=== PATIENT | female | born 1945 ===

== ENCOUNTER 2018-07-06 17:37 | Inpatient (IN) ==
--- NOTE | 2018-07-06 23:10 | P.HPIM ---
[facility] of Present Illness [facility] Primary [facility] Physician: UNKNOWN Chief Complaint: Abdominal pain History of Present Illness: Ms. Kaye is a 72-year-old female with a history of recent admission for COPD , pancreatitis, hypertension, chronic iron deficiency anemia, chronic diarrhea, history of colorectal cancer status post right hemicolectomy with terminal ileectomy, hypothyroidism, and GI bleed who was transferred from [facility] for treatment of pancreatitis with pseudocyst. The patient was admitted on 07/05/2018 after presenting to the emergency room at [facility] complaining of abdominal pain, nausea, and vomiting. She had been discharged on June 24, 2018 following inpatient treatment for for pancreatitis - duration of hospital stay was 10 days according to the patient. CT of the abdomen and pelvis without IV contrast performed 07/05/2018 showed a retroperitoneal complex fluid collection measuring 13 x 16 x 17 cm favoring a large pancreatic pseudocyst. There was question of disruption/ necrosis of the pancreatic neck possibly bridging pancreatitis with a potential disruption of pancreatic duct. Significant distention of the proximal common bile duct was seen and was thought to be likely related to its encasement by the pseudocyst. Lipase was "greater than 600", AST was 136 and ALT was 88 and alkaline phosphatase was 332. Her symptoms included abdominal pain, nausea, and vomiting starting 07/04/2018. Patient seen in the CDU shortly after her arrival. She reports severe right quadrant abdominal pain that was previously relieved with IV morphine at [place]. She was just given IV morphine here and it has not taken effect yet. She reports nausea and thirst. She reports only one episode of vomiting that occurred while she was in the [place] ER. Denies any fever, chills, chest pain. She reports increased SOB and was discharged on 06/24/18 with continuous home oxygen at 2 liters via NC. She previously did not require home oxygen. Review of Systems All other systems reviewed negative except as stated in HPI PMFSH - History History Provided By: Patient - Medical History Medical History: Medical History (Last Updated 07/07/18 @ 00:38 by MICHELET Kim) COPD (chronic obstructive pulmonary disease) Chronic diarrhea Colorectal cancer History of GI bleed History of hysterectomy Hypertension Hypothyroidism Iron deficiency Pancreatitis Rosacea - Surgical History Surgical History: Surgical History (Last Updated 07/06/18 @ 23:56 by MICHELET Kim) History of hemicolectomy History of lithotripsy History of nephrectomy Hx of cholecystectomy - Family History Family History: Family History (Last Updated 07/06/18 @ 23:57 by MICHELET Kim) Mother Family history of breast cancer Father Paternal family history of emphysema - Social History I have reviewed the patient's Social History: Yes - Tobacco History Smoking Status: Never smoker - Alcohol History How Often Do You Have a Drink Containing Alcohol: 2 to 3 times a week - Substance Use History Substance History: No History of Abuse Medications and Allergies Allergies Allergy/AdvReac Type Severity Reaction Status Date / Time No Known Allergies Allergy Verified 07/06/18 23:28 Home Medications Medication Instructions Recorded Confirmed Type amlodipine 5 mg PO DAILY 07/06/18 07/06/18 History levothyroxine 50 mcg PO DAILY 07/06/18 07/06/18 History losartan 100 mg PO DAILY 07/06/18 07/06/18 History pantoprazole [Protonix] 40 mg PO DAILY 07/06/18 07/06/18 History spironolactone [Aldactone] 25 mg PO DAILY 07/06/18 07/06/18 History terazosin PO HS 07/06/18 History torsemide 20 mg PO DAILY 07/06/18 07/06/18 History Exam Narrative: GENERAL: This is an overweight elderly female patient, c/o abdominal pain on arrival from [facility]). SKIN: Cool and dry. Extensive rosacea on face. HEAD: Atraumatic. Normocephalic. EYES: No scleral icterus. No injection or drainage. ENT: Nose without bleeding, purulent drainage. NECK: Trachea midline. No JVD. CARDIOVASCULAR: Regular rate and rhythm without murmurs, gallops, or rubs. RESPIRATORY: Clear to auscultation. Breath sounds equal bilaterally. No wheezes , rales, or rhonchi. GASTROINTESTINAL: Abdomen soft, RUQ tenderness without rebound, nondistended. No guarding. MUSCULOSKELETAL: Extremities without clubbing, cyanosis, or edema. No calf tenderness. NEUROLOGICAL: Awake and alert. Motor and sensory grossly within normal limits. Normal speech. Patient does not know doses of her home medications. . Caprini VTE Risk Assessment Caprini VTE Risk Assessment: Moderate/High Risk (score >= 2) Caprini Risk Assessment Model: Point Value = 1 Point Value = 2 Point Value = 3 Point Value = 5 Age 41-60 Minor surgery BMI > 25 kg/m2 Swollen legs Varicose veins or History of unexplained or recurrent spontaneous Oral contraceptives or hormone replacement Sepsis (< 1 month) Serious lung disease, including pneumonia (< 1 month) Abnormal pulmonary function Acute myocardial infarction Congestive heart failure (< 1 month) History of inflammatory bowel disease Medical patient at bed rest Age 61-74 Arthroscopic surgery Major open surgery (> 45 min) Laparoscopic surgery (> 45 min) Malignancy Confined to bed (> 72 hours) Immobilizing plaster cast Central venous access Age >= 75 History of VTE Family history of VTE Factor V Leiden Prothrombin [id number] Lupus anticoagulant Anticardiolipin antibodies Elevated serum homocysteine Heparin-induced thrombocytopenia Other congenital or acquired thrombophilia Stroke (< 1 month) Elective arthroplasty Hip, pelvis, or leg fracture Acute spinal cord injury (< 1 month) Prophylaxis Regimen: Total Risk Factor Score Risk Level Prophylaxis Regimen 0-1 Low Early ambulation 2 Moderate Order ONE of the following: *Sequential Compression Device (SCD) *Heparin 5000 units SQ BID 3-4 Higher Order ONE of the following medications: *Heparin 5000 units SQ TID *Enoxaparin/Lovenox 40 mg SQ daily (WT < 150 kg, CrCl > 30 mL/min) *Enoxaparin/Lovenox 30 mg SQ daily (WT < 150 kg, CrCl > 10-29 mL/min) *Enoxaparin/Lovenox 30 mg SQ BID (WT < 150 kg, CrCl > 30 mL/min) AND/OR *Sequential Compression Device (SCD) 5 or more Highest Order ONE of the following medications: *Heparin 5000 units SQ TID (Preferred with Epidurals) *Enoxaparin/Lovenox 40 mg SQ daily (WT < 150 kg, CrCl > 30 mL/min) *Enoxaparin/Lovenox 30 mg SQ daily (WT < 150 kg, CrCl > 10-29 mL/min) *Enoxaparin/Lovenox 30 mg SQ BID (WT < 150 kg, CrCl > 30 mL/min) AND *Sequential Compression Device (SCD) Assessment and Plan - Plan Ms. Kaye is a 72-year-old female with a history of recent admission for COPD , pancreatitis, hypertension, chronic iron deficiency anemia, chronic diarrhea, history of colorectal cancer status post right hemicolectomy with terminal ileectomy, hypothyroidism, and GI bleed who was transferred from [facility] for treatment of pancreatitis with pseudocyst. Pancreatitis with pseudocyst -CT of abdomen and pelvis without IV contrast showed retroperitoneal complex fluid collection measuring 13 x 16 x 17 cm favoring a large pancreatic pseu- -n.p.o. -IV fluids with normal saline at 100 cc/h -Morphine 2 mg IV every 3 hours as needed for pain -Patient without fever or elevated white blood count, no antibiotics were ever initiated -IV Zofran for nausea -consult to gastroenterology - appreciate assistance COPD -continuous oxygen via 2l NC -PRN duonebs Other chronic medical problems: hypertension, hypothyroidism -resume home medications -will need to verify whether patient takes amlodipine and losartan DVT prophylaxis -SCDs Discussed Condition With: Dr. Nowak, patient, and RN .
[2018-07-06] MEDS ORDERED: Acetaminophen 325 MG Tablet PO PRN (23:37)
[2018-07-06] MEDS ORDERED: Bisacodyl 10 MG Supp RECTAL PRN (23:37)
[2018-07-07] MEDS: Morphine Sulfate Inj 2 MG/ML Vial IV.PUSH PRN ×4 (00:49→22:12)
[2018-07-07] MEDS: Sod Chloride 0.9% Inj 1,000 ML IV.CONT SCH ×3 (00:51→20:04)
[2018-07-07] MEDS: Levothyroxine 50 MCG Tablet PO SCH (06:46)
[2018-07-07] MEDS: Famotidine PF Inj 20 MG/2 ML Vial IV.PUSH SCH ×2 (08:33→20:04)
[2018-07-07] MEDS: Torsemide 20 MG Tablet PO SCH (08:34)
[2018-07-07] MEDS: Spironolactone 25 MG Tablet PO SCH (08:36)
[2018-07-07] MEDS ORDERED: amLODIPine 5 MG Tablet PO SCH (09:00)
--- NOTE | 2018-07-07 10:26 | P.PN ---
Subjective Interval history: Follow up for abdominal pain, pancreatic pseudocyst: pt. seen and examined, c/o RUQ pain, no n/v. NPO. No cp, no sob. No fever. No acute changes overnight Physical Exam Vital signs: Vital Signs 07/07/18 00:40 07/07/18 08:38 07/07/18 08:46 Temperature 98.5 F Pulse Rate 81 74 Respiratory Rate 20 20 Blood Pressure 197/88 H 129/61 Pulse Oximetry 98 98 98 Intake & Output 07/06/18 07/07/18 07/07/18 18:59 06:59 18:59 Intake Total 1000 / 1000 Balance 1000 / 1000 Weight 117.934 kg Intake: IV 1000 / 1000 NS Inj 1,000 ML @ 100 mls/hr IV 1000 / 1000 .CONT .Q10H DISHA Rx#:[id number] Other: Weight On Admission 117.934 kg Narrative: GENERAL: overweight elderly female patient, NAD SKIN: Cool and dry. Extensive rosacea on face. HEAD: Atraumatic. Normocephalic. EYES: No scleral icterus. No injection or drainage. ENT: Nose without bleeding, purulent drainage. NECK: Trachea midline. No JVD. CARDIOVASCULAR: Regular rate and rhythm without murmurs, gallops, or rubs. RESPIRATORY: Clear to auscultation. Breath sounds equal bilaterally. No wheezes , rales, or rhonchi. GASTROINTESTINAL: Abdomen soft, RUQ tenderness without rebound, nondistended. No guarding. MUSCULOSKELETAL: Extremities without clubbing, cyanosis, or edema. No calf tenderness. NEUROLOGICAL: Awake and alert. Motor and sensory grossly within normal limits. Normal speech. Assessment and Plan - Assessment (1) Pancreatitis Code(s): K85.90 - Acute pancreatitis without necrosis or infection, unspecified Status: Acute (2) Pseudocyst of pancreas Code(s): K86.3 - Pseudocyst of pancreas Status: Acute - Plan 72-year-old female with a history of recent admission for COPD, pancreatitis, hypertension, chronic iron deficiency anemia, chronic diarrhea, history of colorectal cancer status post right hemicolectomy with terminal ileectomy, hypothyroidism, and GI bleed who was transferred from [facility] for treatment of pancreatitis with pseudocyst. Pancreatitis with pseudocyst -CT of abdomen and pelvis without IV contrast showed retroperitoneal complex fluid collection measuring 13 x 16 x 17 cm favoring a large pancreatic pseu- cyst. -n.p.o. -IV fluids with normal saline at 100 cc/h -Morphine 2 mg IV every 3 hours as needed for pain -Patient without fever or elevated white blood count, no antibiotics were ever initiated -IV Zofran for nausea -appreciate GI input, d/w FAMILY PSYCHOLOGIST, going for EUS today COPD -continuous oxygen via 2l NC -PRN duonebs Hypertension -continue home meds when verified, Norvasc and Losartan. Hypothyroidism -continue home meds DVT prophylaxis-SCDs Labs in am Code Status: Full code Discussed Condition With: RN, pt, CM Discharge Planning: Not ready yet, poss home with [facility] [place]
--- NOTE | 2018-07-07 10:30 | P.CONGI ---
History of Present Illness Consult date: 07/07/18 Consult reason: Endoscopic ultrasound for pancreatitis with pseudocyst Chief complaint: Pancreatitis History of Present Illness: This patient is a 72-year-old female with a medical history significant for COPD, pancreatitis, hypertension, iron deficiency anemia, chronic diarrhea, colorectal cancer(right hemicolectomy with terminal ileectomy in 1993), hypothyroidism and GI bleeding. Surgical history includes hysterectomy and right nephrectomy in 1989. This patient was transferred from [facility] to [facility] for endoscopic ultrasound due to diagnosis of pancreatitis with pseudocyst. 07/05/2018 patient presented to the emergency room at [facility] with complaint of abdominal pain nausea and vomiting. Patient had similar symptoms and was admitted recently in May 2018 for pancreatitis as well. CT abdomen and pelvis revealed a retroperitoneal complex fluid collection measuring 13 x 16 x 17 cm-large pancreatic pseudocyst. Upon consultation, patient states that her symptoms began 3 days ago. Symptoms including lower abdominal pain that she describes as spasms. Patient states pain radiates over entire abdomen and is intermittent. At this time patient rates pain at 1/10 after administration of morphine. Patient reports nausea with one episode of emesis. She states this is the second bout of pancreatitis that she has experienced in the last 30 days. Patient denies tobacco use but does endorse drinking 3-4 glasses of "Wrightspeed whiskey" every week for the last 40 years. Patient denies ever having had an EGD in the past but does endorse having colonoscopy in the spring 2017, where to her recollection there were no abnormal findings. Patient states she has 2-3 bowel movements daily that are soft and brown without any noted blood or mucus. States she experiences occasional heartburn for which she will take [id number] medication if needed but tries to avoid anything that she feels triggers symptoms. States family history of pancreatitis-paternal aunt. Our service has been consulted to evaluate patient via endoscopic ultrasound for diagnosed pancreatitis with pseudocyst. <Jennifer Pepper - Last Filed: 07/07/18 10:32> Review of Systems All other systems reviewed negative except as stated in HPI <Jennifer Pepper - Last Filed: 07/07/18 10:32> PMFSH - History History Provided By: Patient - Medical History Medical History: Medical History (Last Updated 07/07/18 @ 00:38 by MICHELET Kim) COPD (chronic obstructive pulmonary disease) Chronic diarrhea Colorectal cancer History of GI bleed History of hysterectomy Hypertension Hypothyroidism Iron deficiency Pancreatitis Rosacea - Surgical History Surgical History: Surgical History (Last Updated 07/06/18 @ 23:56 by MICHELET Kim) History of hemicolectomy History of lithotripsy History of nephrectomy Hx of cholecystectomy - Family History Family History: Family History (Last Updated 07/06/18 @ 23:57 by MICHELET Kim) Mother Family history of breast cancer Father Paternal family history of emphysema - Tobacco History Second Hand Smoke Exposure: Yes (Family) Smoking Status: Never smoker - Alcohol History How Often Do You Have a Drink Containing Alcohol: 2 to 3 times a week - Substance Use History Substance History: No History of Abuse - Travel History Recent Travel in the [place] Within the Last 8 Weeks: No Recent Travel Out of the Country Within the Last 8 Weeks: No <Jennifer Pepper - Last Filed: 07/07/18 10:32> - Medical History Medical History: Medical History (Last Updated 07/07/18 @ 00:38 by MICHELET Kim) COPD (chronic obstructive pulmonary disease) Chronic diarrhea Colorectal cancer History of GI bleed History of hysterectomy Hypertension Hypothyroidism Iron deficiency Pancreatitis Rosacea - Surgical History Surgical History: Surgical History (Last Updated 07/06/18 @ 23:56 by MICHELET Kim) History of hemicolectomy History of lithotripsy History of nephrectomy Hx of cholecystectomy - Family History Family History: Family History (Last Updated 07/06/18 @ 23:57 by MICHELET Kim) Mother Family history of breast cancer Father Paternal family history of emphysema <Shadi Gaffney - Last Filed: 07/07/18 10:54> Medications and Allergies Active Medications: Active Medications Acetaminophen (Tylenol) 650 mg PO Q4H PRN PRN Reason: Temp > 100.4 Albuterol (Duoneb Neb (Prn)) 1 ampul NEB Q2HR NEB PRN PRN Reason: SHORTNESS OF BREATH/WHEEZING Amlodipine Besylate (Norvasc) 5 mg PO DAILY DISHA Bisacodyl (Dulcolax Supp) 10 mg RECTAL DAILY PRN PRN Reason: SEVERE CONSITIPATION Famotidine (Pepcid Pf Inj) 20 mg IV.PUSH Q12HR DISHA Last Admin: 07/07/18 08:33 Dose: 20 mg Sodium Chloride (Ns Inj) 1,000 mls @ 100 mls/hr IV.CONT .Q10H [facility] Last Admin: 07/07/18 08:47 Dose: 100 mls/hr Lactulose (Lactulose Liq) 30 ml PO DAILY PRN PRN Reason: SEVERE CONSITIPATION Levothyroxine Sodium (Synthroid) 50 mcg PO DAILY@0600 [facility] Last Admin: 07/07/18 06:46 Dose: 50 mcg Losartan Potassium (Cozaar) 100 mg PO DAILY [facility] Morphine Sulfate (Morphine Inj) 2 mg IV.PUSH Q3H PRN PRN Reason: pain > 4 Last Admin: 07/07/18 08:31 Dose: 2 mg Ondansetron HCl (Zofran Inj) 4 mg IV.PUSH Q6H PRN PRN Reason: NAUSEA OR VOMITING Last Admin: 07/07/18 07:56 Dose: 4 mg Pantoprazole Sodium (Protonix) 40 mg PO DAILY [facility] Last Admin: 07/07/18 08:34 Dose: 40 mg Sennosides (Senokot) 17.2 mg PO Q12H PRN PRN Reason: Moderate Constipation Spironolactone (Aldactone) 25 mg PO DAILY [facility] Last Admin: 07/07/18 08:36 Dose: 25 mg Torsemide (Demadex) 20 mg PO DAILY [facility] Last Admin: 07/07/18 08:34 Dose: 20 mg <Jennifer Pepper - Last Filed: 07/07/18 10:32> Active Medications: Active Medications Acetaminophen (Tylenol) 650 mg PO Q4H PRN PRN Reason: Temp > 100.4 Albuterol (Duoneb Neb (Prn)) 1 ampul NEB Q2HR NEB PRN PRN Reason: SHORTNESS OF BREATH/WHEEZING Amlodipine Besylate (Norvasc) 5 mg PO DAILY [facility] Bisacodyl (Dulcolax Supp) 10 mg RECTAL DAILY PRN PRN Reason: SEVERE CONSITIPATION Famotidine (Pepcid Pf Inj) 20 mg IV.PUSH Q12HR [facility] Last Admin: 07/07/18 08:33 Dose: 20 mg Sodium Chloride (Ns Inj) 1,000 mls @ 100 mls/hr IV.CONT .Q10H [facility] Last Admin: 07/07/18 08:47 Dose: 100 mls/hr Lactulose (Lactulose Liq) 30 ml PO DAILY PRN PRN Reason: SEVERE CONSITIPATION Levothyroxine Sodium (Synthroid) 50 mcg PO DAILY@0600 [facility] Last Admin: 07/07/18 06:46 Dose: 50 mcg Losartan Potassium (Cozaar) 100 mg PO DAILY [facility] Morphine Sulfate (Morphine Inj) 2 mg IV.PUSH Q3H PRN PRN Reason: pain > 4 Last Admin: 07/07/18 08:31 Dose: 2 mg Ondansetron HCl (Zofran Inj) 4 mg IV.PUSH Q6H PRN PRN Reason: NAUSEA OR VOMITING Last Admin: 07/07/18 07:56 Dose: 4 mg Pantoprazole Sodium (Protonix) 40 mg PO DAILY [facility] Last Admin: 07/07/18 08:34 Dose: 40 mg Sennosides (Senokot) 17.2 mg PO Q12H PRN PRN Reason: Moderate Constipation Spironolactone (Aldactone) 25 mg PO DAILY [facility] Last Admin: 07/07/18 08:36 Dose: 25 mg Torsemide (Demadex) 20 mg PO DAILY [facility] Last Admin: 07/07/18 08:34 Dose: 20 mg <Shadi Gaffney E - Last Filed: 07/07/18 10:54> Allergies Allergy/AdvReac Type Severity Reaction Status Date / Time No Known Allergies Allergy Verified 07/06/18 23:28 Home Medications Medication Instructions Recorded Confirmed Type amlodipine 5 mg PO DAILY 07/06/18 07/06/18 History levothyroxine 50 mcg PO DAILY 07/06/18 07/06/18 History losartan 100 mg PO DAILY 07/06/18 07/06/18 History pantoprazole [Protonix] 40 mg PO DAILY 07/06/18 07/06/18 History spironolactone [Aldactone] 25 mg PO DAILY 07/06/18 07/06/18 History terazosin PO HS 07/06/18 History torsemide 20 mg PO DAILY 07/06/18 07/06/18 History Exam Vital signs: Vital Signs 07/07/18 00:40 07/07/18 08:38 07/07/18 08:46 Temperature 98.5 F Pulse Rate 81 74 Respiratory Rate 20 20 Blood Pressure 197/88 H 129/61 Pulse Oximetry 98 98 98 Intake & Output 07/06/18 07/07/18 07/07/18 18:59 06:59 18:59 Intake Total 1000 / 1000 Balance 1000 / 1000 Weight 117.934 kg Intake: IV 1000 / 1000 NS Inj 1,000 ML @ 100 mls/hr IV 1000 / 1000 .CONT .Q10H [facility] Rx#:[id number] Other: Weight On Admission 117.934 kg - Constitutional no acute distress - Routine HEENT Exam Head: Present: normocephalic - Routine Respiratory Exam Present: CTA bilaterally. Absent: accessory muscle use - Routine Abdominal Exam Present: soft, normoactive bowel sounds, tenderness. Absent: distended, guarding, firm - Routine Extremities Exam Absent: edema - Routine Skin Exam Present: dry, warm - Routine Neurological Exam Present: alert, oriented X3 <Jennifer Pepper - Last Filed: 07/07/18 10:32> Vital signs: Vital Signs 07/07/18 00:40 07/07/18 08:38 07/07/18 08:46 Temperature 98.5 F Pulse Rate 81 74 Respiratory Rate 20 20 Blood Pressure 197/88 H 129/61 Pulse Oximetry 98 98 98 Intake & Output 07/06/18 07/07/18 07/07/18 18:59 06:59 18:59 Intake Total 1000 / 1000 Balance 1000 / 1000 Weight 117.934 kg Intake: IV 1000 / 1000 NS Inj 1,000 ML @ 100 mls/hr IV 1000 / 1000 .CONT .Q10H [facility] Rx#:[id number] Other: Weight On Admission 117.934 kg <Shadi Gaffney - Last Filed: 07/07/18 10:54> Assessment and Plan (1) Pancreatitis Status: Acute Code(s): K85.90 - Acute pancreatitis without necrosis or infection, unspecified (2) Pseudocyst of pancreas Status: Acute Code(s): K86.3 - Pseudocyst of pancreas - Plan This patient is a 72-year-old female with a medical history significant for COPD , pancreatitis, hypertension, iron deficiency anemia, chronic diarrhea, colorectal cancer(right hemicolectomy with terminal ileectomy in 1993), hypothyroidism and GI bleeding. Surgical history includes hysterectomy and right nephrectomy in 1989. This patient was transferred from [facility] to [facility] for endoscopic ultrasound due to diagnosis of pancreatitis with pseudocyst. 07/05/2018 patient presented to the emergency room at [facility] with complaint of abdominal pain nausea and vomiting. Patient had similar symptoms and was admitted recently in May 2018 for pancreatitis as well. CT abdomen and pelvis revealed a retroperitoneal complex fluid collection measuring 13 x 16 x 17 cm-large pancreatic pseudocyst. Upon consultation, patient states that her symptoms began 3 days ago. Symptoms including lower abdominal pain that she describes as spasms. Patient states pain radiates over entire abdomen and is intermittent. At this time patient rates pain at 1/10 after administration of morphine. Patient reports nausea with one episode of emesis. She states this is the second bout of pancreatitis that she has experienced in the last 30 days. Patient denies tobacco use but does endorse drinking 3-4 glasses of "Wrightspeed whiskey" every week for the last 40 years. Patient denies ever having had an EGD in the past but does endorse having colonoscopy in the spring 2017, where to her recollection there were no abnormal findings. Patient states she has 2-3 bowel movements daily that are soft and brown without any noted blood or mucus. States she experiences occasional heartburn for which she will take vvoa-[id number]-pvaaujv medication if needed but tries to avoid anything that she feels triggers symptoms. States family history of pancreatitis-paternal aunt. Our service has been consulted to evaluate patient via endoscopic ultrasound for diagnosed pancreatitis with pseudocyst. Pancreatitis with pseudocyst 07/05/2018 CT abdomen and pelvis revealed retroperitoneal complex fluid collection above. Question of disruption/necrosis of the pancreatic neck possibly bridging pancreatitis with a potential disruption of the pancreatic duct. Plan -N.p.o.- GI rest -Consent for EUS -EUS planned for today to evaluate pancreatic pseudocyst-Dr. Gaffney -Analgesics and antiemetics as per attending -IV hydration -Supportive care -Further recommendations to follow This patient has been seen by myself and Dr. Gaffney and this note is written on his behalf - Attending Attestation Dr. Gaffney <Jennifer Pepper - Last Filed: 07/07/18 10:32> (1) Pancreatitis Status: Acute Code(s): K85.90 - Acute pancreatitis without necrosis or infection, unspecified (2) Pseudocyst of pancreas Status: Acute Code(s): K86.3 - Pseudocyst of pancreas - Plan Patient was seen and examined Agree with above Continue with current supportive care Monitor labs Plan EUS with pseudocyst drainage <Shadi Gaffney - Last Filed: 07/07/18 10:54>
[2018-07-07] MEDS ORDERED: Succinylcholine Inj 100 MG/5 ML Syringe IV.PUSH ONE (11:33)
[2018-07-07] MEDS ORDERED: Lidocaine PF 1% Inj 5 ML Syringe OTHER ONE (11:33)
--- NOTE | 2018-07-07 12:18 | P.PCN ---
Date of procedure: 07/07/18 Pre-op diagnosis: Pancreatic pseudocyst Procedure: PROCEDURE PERFORMED EUS PROCEDURE: The procedure, risks and benefits were discussed with Patient/POA and informed consent was obtained. Anesthesia sedated Patient with Diprivan. Patient was placed in the left lateral decubitus position. Endoscopic ultrasound: The Pentax videoscope was introduced through the oropharynx and advanced to the second portion of the duodenum. FINDINGS: The endoscopic view of the stomach did not reveal any protrusions or bulging into the stomach Pancreatic body and tail appear to be intact Pancreatic head appeared to be disrupted and ill-defined The pancreatic pseudocyst was noted to be deep from within the small bowel and I am unable to drain this into the gastrointestinal tract ESTIMATED BLOOD LOSS: None SPECIMENS REMOVED: None COMPLICATIONS: None IMPRESSION: Pancreatitis Pancreatic pseudocyst PLAN: Will have IR drain the pseudocyst Anesthesia: NANI Surgeon: Shadi Gaffney Condition: stable Disposition: floor
[2018-07-07] MEDS ORDERED: *morphine SULFATE 4 MG/ML PERIprocedure ONLY ONE (12:22)
[2018-07-07] MEDS ORDERED: *Ondansetron Inj 4 MG/2 ML Vial PERIprocedural Use ONLY ONE (12:31)
[2018-07-07 23:57] LABS: Baso % (Auto) 0.4 % (0.0-2.0); Hematocrit 28.9 % (35.0-46.0); Lymph # (Auto) 0.4 th/mm3 (1.0-4.8); Mean Corpuscular HGB Conc 31.3 % (32.0-36.0); Mean Corpuscular Hemoglobin 26.8 pg (27.0-34.0); Mean Corpuscular Volume 85.8 fL (80.0-100.0); Mean Platelet Volume 7.5 fL (7.0-11.0); Mono # (Auto) 0.5 th/mm3 (0.0-0.9); Mono % (Auto) 6.9 % (0.0-8.0); Neut # (Auto) 5.7 th/mm3 (1.8-7.7); Neut % (Auto) 86.7 % (16.0-70.0); Platelet Count 309 th/mm3 (150-450); Red Blood Count 3.37 mil/mm3 (4.00-5.30); Red Cell Distribution Width 14.9 % (11.6-17.2); White Blood Count 6.6 th/mm3 (4.0-11.0)
[2018-07-08 00:26] LABS: Alanine Aminotransferase 407 U/L (10-53); Albumin 2.3 g/dL (3.4-5.0); Anion Gap 6 meq/L (5-15); Aspartate Aminotransferase 492 U/L (15-37); Blood Urea Nitrogen 21 mg/dL (7-18); Calcium 8.6 mg/dL (8.5-10.1); Chloride 99 meq/L (98-107); Glucose,Random 143 mg/dL (74-106); Potassium 3.7 meq/L (3.5-5.1); Sodium 140 meq/L (136-145)
[2018-07-08 00:28] LABS: Alkaline Phosphatase 660 U/L (45-117); Lipase 1974 U/L (73-393); Total Protein 6.2 g/dL (6.4-8.2)
[2018-07-08] MEDS: Morphine Sulfate Inj 2 MG/ML Vial IV.PUSH PRN ×4 (04:28→21:55)
[2018-07-08 06:04] LABS: Hematocrit 30.4 % (35.0-46.0); Mean Corpuscular HGB Conc 33.1 % (32.0-36.0); Mean Corpuscular Hemoglobin 28.3 pg (27.0-34.0); Mean Corpuscular Volume 85.4 fL (80.0-100.0); Mean Platelet Volume 7.5 fL (7.0-11.0); Platelet Count 334 th/mm3 (150-450); Red Blood Count 3.55 mil/mm3 (4.00-5.30); Red Cell Distribution Width 14.8 % (11.6-17.2); White Blood Count 7.1 th/mm3 (4.0-11.0)
[2018-07-08 06:20] LABS: INR 1.1 Ratio; Prothrombin Time 11.4 sec (9.8-11.6)
[2018-07-08 06:24] LABS: Albumin 2.6 g/dL (3.4-5.0); Anion Gap 7 meq/L (5-15); Aspartate Aminotransferase 625 U/L (15-37); Blood Urea Nitrogen 21 mg/dL (7-18); Carbon Dioxide 36.8 meq/L (21.0-32.0); Chloride 98 meq/L (98-107); Glucose,Random 100 mg/dL (74-106); Potassium 3.8 meq/L (3.5-5.1); Sodium 142 meq/L (136-145)
[2018-07-08 06:30] LABS: Alanine Aminotransferase 498 U/L (10-53); Alkaline Phosphatase 761 U/L (45-117); Lipase 1952 U/L (73-393); Total Protein 6.9 g/dL (6.4-8.2)
[2018-07-08] MEDS: Sod Chloride 0.9% Inj 1,000 ML IV.CONT SCH ×2 (06:30→16:42)
[2018-07-08] MEDS: Levothyroxine 50 MCG Tablet PO SCH (06:31)
[2018-07-08] MEDS: Spironolactone 25 MG Tablet PO SCH (08:33)
[2018-07-08] MEDS: Famotidine PF Inj 20 MG/2 ML Vial IV.PUSH SCH ×2 (08:33→20:00)
[2018-07-08] MEDS: Torsemide 20 MG Tablet PO SCH (08:33)
--- NOTE | 2018-07-08 10:52 | P.PN ---
Subjective Interval history: With pain in her abdomen, no nausea or vomiting. Did not pass gas however feels distended. Did not have a bowel movement. No fever or chills overnight. No nausea or vomiting Physical Exam Vital signs: Vital Signs 07/07/18 12:17 07/07/18 12:30 07/07/18 16:21 Temperature 99 F 98.9 F Pulse Rate 74 74 60 Respiratory Rate 22 24 18 Blood Pressure 162/73 H 141/74 H 145/73 H Pulse Oximetry 100 99 99 07/07/18 18:12 07/07/18 20:00 07/07/18 20:08 Temperature 98.1 F 98.0 F Pulse Rate 62 80 85 Respiratory Rate 16 20 Blood Pressure 149/75 H 131/74 Pulse Oximetry 93 L 96 07/08/18 00:00 07/08/18 04:00 07/08/18 08:00 Temperature 97.5 F L 97.5 F L 97.9 F Pulse Rate 68 71 65 Respiratory Rate 18 18 18 Blood Pressure 160/79 H 163/78 H 159/72 H Pulse Oximetry 95 99 99 Intake & Output 07/07/18 07/08/18 07/08/18 18:59 06:59 18:59 Intake Total 1200 / 1200 1999 Balance 1200 / 1200 1999 Weight 117.8 kg Intake: IV 1000 / 1000 1999 NS Inj 1,000 ML @ 100 mls/hr IV 1000 / 1000 1999 .CONT .Q10H [facility] Rx#:[id number] Anesthesia Amount 200 / 200 Other: # Voids 3 Narrative: GENERAL: Pleasant 72 yo F, obese, in NAD SKIN: Cool and dry. Extensive rosacea on face. HEAD: Atraumatic. Normocephalic. EYES: No scleral icterus. No injection or drainage. ENT: Nose without bleeding, purulent drainage. NECK: Trachea midline. No JVD. CARDIOVASCULAR: Regular rate and rhythm without murmurs, gallops, or rubs. RESPIRATORY: Clear to auscultation. Breath sounds equal bilaterally. No wheezes , rales, or rhonchi. GASTROINTESTINAL: Abdomen soft, obese, RUQ tenderness without rebound, nondistended. No guarding. MUSCULOSKELETAL: Extremities without clubbing, cyanosis, or edema. No calf tenderness. NEUROLOGICAL: Awake and alert. Motor and sensory grossly within normal limits. Normal speech. Results - Labs CBC & Chem 7: 07/08/18 05:33 07/08/18 05:33 Laboratory Results - last 24 hr 07/07/18 07/07/18 07/08/18 23:35 23:35 05:33 WBC 6.6 7.1 RBC 3.37 L 3.55 L Hgb 9.0 L 10.0 L Hct 28.9 L 30.4 L MCV 85.8 85.4 MCH 26.8 L 28.3 MCHC 31.3 L 33.1 RDW 14.9 14.8 Plt Count 309 334 MPV 7.5 7.5 Neut % (Auto) 86.7 H Lymph % (Auto) 6.0 L [place] % (Auto) 6.9 Eos % (Auto) 0.0 Baso % (Auto) 0.4 Neut # (Auto) 5.7 Lymph # (Auto) 0.4 L [place] # (Auto) 0.5 Eos # (Auto) 0.0 Baso # (Auto) 0.0 WBC Differential . Differential Comment Auto diff final PT INR Sodium 140 Potassium 3.7 Chloride 99 Carbon Dioxide 35.0 H Anion Gap 6 BUN 21 H Creatinine 1.53 H Random Glucose 143 H Calcium 8.6 Total Bilirubin 2.2 H AST 492 H ALT 407 H Alkaline Phosphatase 660 H Total Protein 6.2 L Albumin 2.3 L Lipase 1974 H 07/08/18 07/08/18 05:33 05:33 WBC RBC Hgb Hct MCV MCH MCHC RDW Plt Count MPV Neut % (Auto) Lymph % (Auto) [place] % (Auto) Eos % (Auto) Baso % (Auto) Neut # (Auto) Lymph # (Auto) [place] # (Auto) Eos # (Auto) Baso # (Auto) WBC Differential Differential Comment PT 11.4 INR 1.1 Sodium 142 Potassium 3.8 Chloride 98 Carbon Dioxide 36.8 H Anion Gap 7 BUN 21 H Creatinine 1.71 H Random Glucose 100 Calcium 9.0 Total Bilirubin 2.4 H AST 625 H ALT 498 H Alkaline Phosphatase 761 H Total Protein 6.9 D Albumin 2.6 L Lipase 1952 H Assessment and Plan - Assessment (1) Pancreatitis Code(s): K85.90 - Acute pancreatitis without necrosis or infection, unspecified Status: Acute (2) Pseudocyst of pancreas Code(s): K86.3 - Pseudocyst of pancreas Status: Acute - Plan 72-year-old female with a history of recent admission for COPD, pancreatitis, hypertension, chronic iron deficiency anemia, chronic diarrhea, history of colorectal cancer status post right hemicolectomy with terminal ileectomy, hypothyroidism, and GI bleed who was transferred from [facility] for treatment of pancreatitis with pseudocyst. Pancreatitis with pseudocyst -CT of abdomen and pelvis without IV contrast showed retroperitoneal complex fluid collection measuring 13 x 16 x 17 cm favoring a large pancreatic pseu- cyst. -n.p.o. -IV fluids with normal saline at 100 cc/h -Morphine 2 mg IV every 3 hours as needed for pain -Patient without fever or elevated white blood count, no antibiotics were ever initiated -IV Zofran for nausea -appreciate GI input, d/w [employer], going for EUS today -s/p EUS by GI. Consult IR to drain the pseudocyst. Plan for IR to drain pseudocyst, however IR and general surgery to not perform surgery. Plan to transfer to [facility]. Discussed with the case management. Possible transfer to [facility] COPD -continuous oxygen via 2l [place] -PRN duonebs Hypertension -continue home meds when verified, Norvasc and Losartan. Hypothyroidism -continue home meds DVT prophylaxis-SCDs Labs in am Code Status: Full code Discussed Condition With: patient, nurse Discharge Planning: Not ready yet, poss home with [facility] Plan for IR to drain pseudocyst, however IR and general surgery to not perform surgery. Plan to transfer to tertiary hospital. Discussed with the case management. Possible transfer to [facility]
--- NOTE | 2018-07-08 12:48 | ECG ---
Date Performed: 07/07/2018 Time Performed: 11:13:13 PTAGE: 72 years EKG: Sinus rhythm WITH OCCASIONAL VENTRICULAR PREMATURE COMPLEXES WITH OCCASIONAL SUPRAVENTRICULAR PREMATURE COMPLEXES BORDERLINE ECG INTERPRETATION BASED ON A DEFAULT AGE OF 42 YEARS NO PREVIOUS TRACING DOCTOR: Cristo Crum Interpretating Date/Time 07/08/2018 12:44:29
--- NOTE | 2018-07-08 13:17 | IR ---
EXAM DATE: 07/08/2018 9:10 AM EST AGE/SEX: 72 years / Female INDICATIONS: Patient with a history of pancreatic pseudocyst. COMPARISON: Recent outside CT abdomen study from [facility]. IMAGING STUDIES: The CT abdomen study reveals a large complex pancreatic pseudocyst extending from the liver hilum hien n into the right paramedian upper pelvic retroperitoneum. The collection is multilocular and surround s the common bile duct and duodenum. There is no safe window for access of the collection through the stomach percutaneously. ASSESSMENT: Complex pancreatic pseudocyst not appropriate for percutaneous drainage PLAN: I would recommend that the patient be referred to a tertiary care facility with expertise in complex pancreatic disease management Electronically signed by: Ralph Acosta MD 07/08/2018 1:15 PM EST
--- NOTE | 2018-07-08 13:33 | P.PNGI ---
Subjective Interval history: Right upper quadrant abdominal pain decreased appetite <Tamar Garsia - Last Filed: 07/08/18 15:11> Physical Exam Vital signs: Vital Signs 07/07/18 16:21 07/07/18 18:12 07/07/18 20:00 Temperature 98.9 F 98.1 F Pulse Rate 60 62 80 Respiratory Rate 18 16 Blood Pressure 145/73 H 149/75 H Pulse Oximetry 99 93 L 07/07/18 20:08 07/08/18 00:00 07/08/18 04:00 Temperature 98.0 F 97.5 F L 97.5 F L Pulse Rate 85 68 71 Respiratory Rate 20 18 18 Blood Pressure 131/74 160/79 H 163/78 H Pulse Oximetry 96 95 99 07/08/18 08:00 07/08/18 12:00 Temperature 97.9 F 98.2 F Pulse Rate 65 62 Respiratory Rate 18 18 Blood Pressure 159/72 H 153/77 H Pulse Oximetry 99 99 Intake & Output 07/07/18 07/08/18 07/08/18 18:59 06:59 18:59 Intake Total 1200 / 1200 1999 Balance 1200 / 1200 1999 Weight 117.8 kg Intake: IV 1000 / 1000 1999 NS Inj 1,000 ML @ 100 mls/hr IV 1000 / 1000 1999 .CONT .Q10H [facility] Rx#:[id number] Anesthesia Amount 200 / 200 Other: # Voids 3 - Constitutional moderate distress, obese, disheveled, cooperative - Routine HEENT Exam ENT: Present: mucous membranes moist - Routine Respiratory Exam Present: distant breath sounds (But no obvious rhonchi or wheezing) - Routine Abdominal Exam Present: normoactive bowel sounds (Soft bowel sounds talked abdomen right upper quadrant greater than left) - Routine Skin Exam Present: pallor <AdyTamar Petty - Last Filed: 07/08/18 15:11> Vital signs: Vital Signs 07/08/18 00:00 07/08/18 04:00 07/08/18 08:00 Temperature 97.5 F L 97.5 F L 97.9 F Pulse Rate 68 71 65 Respiratory Rate 18 18 18 Blood Pressure 160/79 H 163/78 H 159/72 H Pulse Oximetry 95 99 99 07/08/18 12:00 07/08/18 16:00 07/08/18 18:34 Temperature 98.2 F 97.1 F L Pulse Rate 62 63 61 Respiratory Rate 18 18 Blood Pressure 153/77 H 161/77 H Pulse Oximetry 99 100 Intake & Output 07/08/18 07/08/18 07/09/18 06:59 18:59 06:59 Intake Total 1999 1000 / 1000 Balance 1999 1000 / 1000 Weight 117.8 kg Intake: IV 1999 1000 / 1000 NS Inj 1,000 ML @ 100 mls/hr IV 1999 1000 / 1000 .CONT .Q10H [facility] Rx#:[id number] Other: # Voids 3 <Agustin Roach - Last Filed: 07/08/18 20:35> Results - Labs CBC & Chem 7: 07/08/18 05:33 07/08/18 05:33 Laboratory Results - last 24 hr 07/07/18 07/07/18 07/08/18 23:35 23:35 05:33 WBC 6.6 7.1 RBC 3.37 L 3.55 L Hgb 9.0 L 10.0 L Hct 28.9 L 30.4 L MCV 85.8 85.4 MCH 26.8 L 28.3 MCHC 31.3 L 33.1 RDW 14.9 14.8 Plt Count 309 334 MPV 7.5 7.5 Neut % (Auto) 86.7 H Lymph % (Auto) 6.0 L [place] % (Auto) 6.9 Eos % (Auto) 0.0 Baso % (Auto) 0.4 Neut # (Auto) 5.7 Lymph # (Auto) 0.4 L [place]ard # (Auto) 0.5 Eos # (Auto) 0.0 Baso # (Auto) 0.0 WBC Differential . Differential Comment Auto diff final PT INR Sodium 140 Potassium 3.7 Chloride 99 Carbon Dioxide 35.0 H Anion Gap 6 BUN 21 H Creatinine 1.53 H Random Glucose 143 H Calcium 8.6 Total Bilirubin 2.2 H AST 492 H ALT 407 H Alkaline Phosphatase 660 H Total Protein 6.2 L Albumin 2.3 L Lipase 1974 H 07/08/18 07/08/18 05:33 05:33 WBC RBC Hgb Hct MCV MCH MCHC RDW Plt Count MPV Neut % (Auto) Lymph % (Auto) [place] % (Auto) Eos % (Auto) Baso % (Auto) Neut # (Auto) Lymph # (Auto) [place] # (Auto) Eos # (Auto) Baso # (Auto) WBC Differential Differential Comment PT 11.4 INR 1.1 Sodium 142 Potassium 3.8 Chloride 98 Carbon Dioxide 36.8 H Anion Gap 7 BUN 21 H Creatinine 1.71 H Random Glucose 100 Calcium 9.0 Total Bilirubin 2.4 H AST 625 H ALT 498 H Alkaline Phosphatase 761 H Total Protein 6.9 D Albumin 2.6 L Lipase 1952 H <AdyTamar Malinda - Last Filed: 07/08/18 15:11> - Labs CBC & Chem 7: 07/08/18 05:33 07/08/18 05:33 Laboratory Results - last 24 hr 07/07/18 07/07/18 07/08/18 23:35 23:35 05:33 WBC 6.6 7.1 RBC 3.37 L 3.55 L Hgb 9.0 L 10.0 L Hct 28.9 L 30.4 L MCV 85.8 85.4 MCH 26.8 L 28.3 MCHC 31.3 L 33.1 RDW 14.9 14.8 Plt Count 309 334 MPV 7.5 7.5 Neut % (Auto) 86.7 H Lymph % (Auto) 6.0 L [place] % (Auto) 6.9 Eos % (Auto) 0.0 Baso % (Auto) 0.4 Neut # (Auto) 5.7 Lymph # (Auto) 0.4 L [place] # (Auto) 0.5 Eos # (Auto) 0.0 Baso # (Auto) 0.0 WBC Differential . Differential Comment Auto diff final PT INR Sodium 140 Potassium 3.7 Chloride 99 Carbon Dioxide 35.0 H Anion Gap 6 BUN 21 H Creatinine 1.53 H Random Glucose 143 H Calcium 8.6 Total Bilirubin 2.2 H AST 492 H ALT 407 H Alkaline Phosphatase 660 H Total Protein 6.2 L Albumin 2.3 L Lipase 1974 H 07/08/18 07/08/18 05:33 05:33 WBC RBC Hgb Hct MCV MCH MCHC RDW Plt Count MPV Neut % (Auto) Lymph % (Auto) [place] % (Auto) Eos % (Auto) Baso % (Auto) Neut # (Auto) Lymph # (Auto) [place] # (Auto) Eos # (Auto) Baso # (Auto) WBC Differential Differential Comment PT 11.4 INR 1.1 Sodium 142 Potassium 3.8 Chloride 98 Carbon Dioxide 36.8 H Anion Gap 7 BUN 21 H Creatinine 1.71 H Random Glucose 100 Calcium 9.0 Total Bilirubin 2.4 H AST 625 H ALT 498 H Alkaline Phosphatase 761 H Total Protein 6.9 D Albumin 2.6 L Lipase 1952 H <Agustin Roach - Last Filed: 07/08/18 20:35> Assessment and Plan (1) Pancreatitis Status: Acute Code(s): K85.90 - Acute pancreatitis without necrosis or infection, unspecified (2) Pseudocyst of pancreas Status: Acute Code(s): K86.3 - Pseudocyst of pancreas - Plan EUS per Dr. Gaffney The endoscopic view of the stomach did not reveal any protrusions or bulging into the stomach Pancreatic body and tail appear to be intact Pancreatic head appeared to be disrupted and ill-defined The pancreatic pseudocyst was noted to be deep from within the small bowel and I am unable to drain this into the gastrointestinal tract Pancreatitis and pancreatic pseudocyst 07/08/2018 IR consulted to evaluate pseudocyst for patient with diagnosis of pancreatitis. Currently are is evaluate and further needs and recommended surgical consult. Labs reviewed this a.m. which noted increased bilirubin 2.4 increase in LFTs 625 AST, 498 ALT increased alkaline phosphatase 761 and hemoglobin 10. Consulting general surgery and GI will sign off for now. Supportive care to patient and family Patient continues with right upper quadrant distention and pain greater than left upper quadrant. Appears weakened but answering simple questions family in the room for support. No current nausea or vomiting but decreased to no appetite. Addendum, general surgery consult is unable to provide service for patient's pseudocyst. Patient will need transfer to [facility] or [place] for further evaluation and workup. Patient seen per myself and Dr. Roach, note was written on his behalf <Tamar Garsia - Last Filed: 07/08/18 15:11> (1) Pancreatitis Status: Acute Code(s): K85.90 - Acute pancreatitis without necrosis or infection, unspecified (2) Pseudocyst of pancreas Status: Acute Code(s): K86.3 - Pseudocyst of pancreas - Plan Agree with above note, patient will need to be transferred to a tertiary center such as [facility] or [facility] for surgical evaluation for possible drainage of the cyst since radiology and EUS were not a valid option, we will follow-up as needed <Agustin Roach - Last Filed: 07/08/18 20:35>
--- NOTE | 2018-07-08 14:39 | P.CONGS ---
[facility] Gen Surgery Consult Note Consult date: 07/08/18 Narrative: 72 yo F with h/o hospitalization in May 2018 for pancreatitis who presented to [facility] Friday with abdominal pain and was found to have a large pancreatic pseudocyst. She was transferred to [facility] for EUS and pseudocyst drainage, but drainage was unable to be performed. IR also evaluated for possible drainage and recommended surgical consult. She c/o difficulty tolerating oral diet, bloating, and abdominal pain. Review of Systems All other systems reviewed negative except as stated in [facility] PMF - History History Provided By: Patient - Medical History Medical History: Medical History (Last Updated 07/07/18 @ 00:38 by MICHELET Kim) COPD (chronic obstructive pulmonary disease) Chronic diarrhea Colorectal cancer History of GI bleed History of hysterectomy Hypertension Hypothyroidism Iron deficiency Pancreatitis Rosacea - Surgical History Surgical History: Surgical History (Last Updated 07/06/18 @ 23:56 by MICHELET Kim) History of hemicolectomy History of lithotripsy History of nephrectomy Hx of cholecystectomy - Family History Family History: Family History (Last Updated 07/06/18 @ 23:57 by MICHELET Kim) Mother Family history of breast cancer Father Paternal family history of emphysema - Tobacco History Second Hand Smoke Exposure: Yes (Family) Smoking Status: Never smoker - Alcohol History How Often Do You Have a Drink Containing Alcohol: 2 to 3 times a week - Substance Use History Substance History: No History of Abuse - Travel History Recent Travel in the [place] Within the Last 8 Weeks: No Recent Travel Out of the Country Within the Last 8 Weeks: No - Immunization History Tetanus Immunization: >5 Years Hx Influenza Vaccine This Season: Yes Medications and Allergies Active Medications: Active Medications Acetaminophen (Tylenol) 650 mg PO Q4H PRN PRN Reason: Temp > 100.4 Albuterol (Duoneb Neb (Prn)) 1 ampul NEB Q2HR NEB PRN PRN Reason: SHORTNESS OF BREATH/WHEEZING Amlodipine Besylate (Norvasc) 5 mg PO DAILY [facility] Bisacodyl (Dulcolax Supp) 10 mg RECTAL DAILY PRN PRN Reason: SEVERE CONSITIPATION Famotidine (Pepcid Pf Inj) 20 mg IV.PUSH Q12HR [facility] Last Admin: 07/08/18 08:33 Dose: 20 mg Sodium Chloride (Ns Inj) 1,000 mls @ 100 mls/hr IV.CONT .Q10H [facility] Last Admin: 07/08/18 06:30 Dose: 100 mls/hr Lactulose (Lactulose Liq) 30 ml PO DAILY PRN PRN Reason: SEVERE CONSITIPATION Levothyroxine Sodium (Synthroid) 50 mcg PO DAILY@0600 [facility] Last Admin: 07/08/18 06:31 Dose: 50 mcg Losartan Potassium (Cozaar) 100 mg PO DAILY [facility] Morphine Sulfate (Morphine Inj) 2 mg IV.PUSH Q3H PRN PRN Reason: pain > 4 Last Admin: 07/08/18 08:35 Dose: 2 mg Ondansetron HCl (Zofran Inj) 4 mg IV.PUSH Q6H PRN PRN Reason: NAUSEA OR VOMITING Last Admin: 07/08/18 08:51 Dose: 4 mg Pantoprazole Sodium (Protonix) 40 mg PO DAILY [facility] Last Admin: 07/08/18 08:33 Dose: 40 mg Sennosides (Senokot) 17.2 mg PO Q12H PRN PRN Reason: Moderate Constipation Spironolactone (Aldactone) 25 mg PO DAILY [facility] Last Admin: 07/08/18 08:33 Dose: 25 mg Torsemide (Demadex) 20 mg PO DAILY [facility] Last Admin: 07/08/18 08:33 Dose: 20 mg Allergies Allergy/AdvReac Type Severity Reaction Status Date / Time No Known Allergies Allergy Verified 07/06/18 23:28 Home Medications Medication Instructions Recorded Confirmed Type amlodipine 5 mg PO DAILY 07/06/18 07/06/18 History levothyroxine 50 mcg PO DAILY 07/06/18 07/06/18 History losartan 100 mg PO DAILY 07/06/18 07/06/18 History pantoprazole [Protonix] 40 mg PO DAILY 07/06/18 07/06/18 History spironolactone [Aldactone] 25 mg PO DAILY 07/06/18 07/06/18 History terazosin PO HS 07/06/18 History torsemide 20 mg PO DAILY 07/06/18 07/06/18 History Exam Vital signs: Vital Signs 07/07/18 16:21 07/07/18 18:12 07/07/18 20:00 Temperature 98.9 F 98.1 F Pulse Rate 60 62 80 Respiratory Rate 18 16 Blood Pressure 145/73 H 149/75 H Pulse Oximetry 99 93 L 07/07/18 20:08 07/08/18 00:00 07/08/18 04:00 Temperature 98.0 F 97.5 F L 97.5 F L Pulse Rate 85 68 71 Respiratory Rate 20 18 18 Blood Pressure 131/74 160/79 H 163/78 H Pulse Oximetry 96 95 99 07/08/18 08:00 07/08/18 12:00 Temperature 97.9 F 98.2 F Pulse Rate 65 62 Respiratory Rate 18 Blood Pressure 159/72 H 153/77 H Pulse Oximetry 99 99 Intake & Output 07/07/18 07/08/18 07/08/18 18:59 06:59 18:59 Intake Total 1200 / 1200 1999 Balance 1200 / 1200 1999 Weight 117.8 kg Intake: IV 1000 / 1000 1999 NS Inj 1,000 ML @ 100 mls/hr IV 1000 / 1000 1999 .CONT .Q10H [facility] Rx#:[id number] Anesthesia Amount 200 / 200 Other: # Voids 3 Narrative: GENERAL: Awake and alert. No acute distress. Cooperative. HEAD: Normocephalic. Atraumatic. EYES: Pupils equal round and reactive to light bilaterally. No scleral icterus. ENT: Moist oral mucosa. NECK: Trachea midline. CHEST: Nonlabored breathing. No respiratory distress. CARDIOVASCULAR: Regular rate and rhythm. ABDOMEN: Distended, mild epigastric ttp. Right subcostal scar and midline scar. EXTREMITIES: No cyanosis or edema. SKIN: Warm, dry, nonjaundiced. Results - Labs 07/08/18 05:33 07/08/18 05:33 Laboratory Results - last 24 hr 07/07/18 07/07/18 07/08/18 23:35 23:35 05:33 WBC 6.6 7.1 RBC 3.37 L 3.55 L Hgb 9.0 L 10.0 L Hct 28.9 L 30.4 L MCV 85.8 85.4 MCH 26.8 L 28.3 MCHC 31.3 L 33.1 RDW 14.9 14.8 Plt Count 309 334 MPV 7.5 7.5 Neut % (Auto) 86.7 H Lymph % (Auto) 6.0 L [place] % (Auto) 6.9 Eos % (Auto) 0.0 Baso % (Auto) 0.4 Neut # (Auto) 5.7 Lymph # (Auto) 0.4 L [place] # (Auto) 0.5 Eos # (Auto) 0.0 Baso # (Auto) 0.0 WBC Differential . Differential Comment Auto diff final PT INR Sodium 140 Potassium 3.7 Chloride 99 Carbon Dioxide 35.0 H Anion Gap 6 BUN 21 H Creatinine 1.53 H Random Glucose 143 H Calcium 8.6 Total Bilirubin 2.2 H AST 492 H ALT 407 H Alkaline Phosphatase 660 H Total Protein 6.2 L Albumin 2.3 L Lipase 1974 H 07/08/18 07/08/18 05:33 05:33 WBC RBC Hgb Hct MCV MCH MCHC RDW Plt Count MPV Neut % (Auto) Lymph % (Auto) [place] % (Auto) Eos % (Auto) Baso % (Auto) Neut # (Auto) Lymph # (Auto) [place] # (Auto) Eos # (Auto) Baso # (Auto) WBC Differential Differential Comment PT 11.4 INR 1.1 Sodium 142 Potassium 3.8 Chloride 98 Carbon Dioxide 36.8 H Anion Gap 7 BUN 21 H Creatinine 1.71 H Random Glucose 100 Calcium 9.0 Total Bilirubin 2.4 H AST 625 H ALT 498 H Alkaline Phosphatase 761 H Total Protein 6.9 D Albumin 2.6 L Lipase 1952 H Assessment and Plan - Assessment (1) Pseudocyst of pancreas Code(s): K86.3 - Pseudocyst of pancreas Status: Acute - Plan 72 yo F with large pancreatic pseudocyst not amenable to endoscopic drainage. Complex case and complex perioperative care and I recommend referral to tertiary center for further evaluation and treatment. D/w Dr. Arellano and Dr. Sousa.
[2018-07-09] MEDS: Sod Chloride 0.9% Inj 1,000 ML IV.CONT SCH ×4 (02:56→22:51)
[2018-07-09] MEDS: Morphine Sulfate Inj 2 MG/ML Vial IV.PUSH PRN ×4 (05:18→22:49)
[2018-07-09] MEDS: Levothyroxine 50 MCG Tablet PO SCH (05:19)
[2018-07-09 07:00] LABS: Baso % (Auto) 0.7 % (0.0-2.0); Eos % (Auto) 0.4 % (0.0-4.0); Hematocrit 31.9 % (35.0-46.0); Hemoglobin 10.1 gm/dL (11.6-15.3); Lymph # (Auto) 0.4 th/mm3 (1.0-4.8); Lymph % (Auto) 7.5 % (9.0-44.0); Mean Corpuscular HGB Conc 31.7 % (32.0-36.0); Mean Corpuscular Hemoglobin 27.7 pg (27.0-34.0); Mean Corpuscular Volume 87.3 fL (80.0-100.0); Mean Platelet Volume 7.7 fL (7.0-11.0); Mono # (Auto) 0.5 th/mm3 (0.0-0.9); Mono % (Auto) 8.7 % (0.0-8.0); Neut # (Auto) 4.5 th/mm3 (1.8-7.7); Neut % (Auto) 82.7 % (16.0-70.0); Platelet Count 303 th/mm3 (150-450); Red Blood Count 3.65 mil/mm3 (4.00-5.30); Red Cell Distribution Width 15.3 % (11.6-17.2); White Blood Count 5.4 th/mm3 (4.0-11.0)
[2018-07-09 07:18] LABS: Calcium 9.5 mg/dL (8.5-10.1); Carbon Dioxide 35.9 meq/L (21.0-32.0); Potassium 3.2 meq/L (3.5-5.1)
[2018-07-09] MEDS: Torsemide 20 MG Tablet PO SCH (09:20)
[2018-07-09] MEDS: Spironolactone 25 MG Tablet PO SCH (09:20)
[2018-07-09] MEDS: Famotidine PF Inj 20 MG/2 ML Vial IV.PUSH SCH ×2 (09:21→20:58)
--- NOTE | 2018-07-09 14:28 | P.PN ---
Subjective Interval history: The patient is in bed she appears in some pain. Says that able to eat much. Has some shortness of breath however shortness of breath improved today. Pain in her abdomen is fairly controlled by pain medications she is receiving IV morphine. No fever or chills overnight no nausea vomiting . Did not have a bowel movement. Passing gas. Physical Exam Vital signs: Vital Signs 07/08/18 16:00 07/08/18 18:34 07/08/18 20:00 Temperature 97.1 F L 98.1 F Pulse Rate 63 61 69 Respiratory Rate 18 18 Blood Pressure 161/77 H 137/73 Pulse Oximetry 100 98 07/08/18 23:35 07/09/18 00:45 07/09/18 03:35 Temperature 98 F Pulse Rate 64 76 67 Respiratory Rate 18 Blood Pressure 160/91 H Pulse Oximetry 98 07/09/18 04:00 07/09/18 08:00 07/09/18 12:00 Temperature 98.0 F 97.6 F 97.1 F L Pulse Rate 64 89 68 Respiratory Rate 16 15 17 Blood Pressure 146/90 H 125/76 136/67 Pulse Oximetry 98 95 99 Intake & Output 07/08/18 07/09/18 07/09/18 18:59 06:59 18:59 Intake Total 1000 / 1000 1959 / 1960 1000 / 1000 Output Total 400 / 400 Balance 1000 / 1000 1560 / 1560 1000 / 1000 Intake: IV 1000 / 1000 1000 / 1000 1000 / 1000 NS Inj 1,000 ML @ 100 mls/hr IV 1000 / 1000 1000 / 1000 1000 / 1000 .CONT .[facility] Rx#:[id number] Oral 960 / 960 Output: Urine 400 / 400 Narrative: GENERAL: Pleasant 72 yo F, obese, in NAD SKIN: Cool and dry. Extensive rosacea on face. HEAD: Atraumatic. Normocephalic. EYES: No scleral icterus. No injection or drainage. ENT: Nose without bleeding, purulent drainage. NECK: Trachea midline. No JVD. CARDIOVASCULAR: Regular rate and rhythm without murmurs, gallops, or rubs. RESPIRATORY: Clear to auscultation. Breath sounds equal bilaterally. No wheezes , rales, or rhonchi. GASTROINTESTINAL: Abdomen soft, obese, RUQ tenderness without rebound, nondistended. No guarding. MUSCULOSKELETAL: Extremities without clubbing, cyanosis, or edema. No calf tenderness. NEUROLOGICAL: Awake and alert. Motor and sensory grossly within normal limits. Normal speech. Results - Labs CBC & Chem 7: 07/09/18 06:24 07/09/18 06:24 Laboratory Results - last 24 hr 07/09/18 07/09/18 06:24 06:24 WBC 5.4 RBC 3.65 L Hgb 10.1 L Hct 31.9 L MCV 87.3 MCH 27.7 MCHC 31.7 L RDW 15.3 Plt Count 303 MPV 7.7 Neut % (Auto) 82.7 H Lymph % (Auto) 7.5 L [place] % (Auto) 8.7 H Eos % (Auto) 0.4 Baso % (Auto) 0.7 Neut # (Auto) 4.5 Lymph # (Auto) 0.4 L [place] # (Auto) 0.5 Eos # (Auto) 0.0 Baso # (Auto) 0.0 WBC Differential . Differential Comment Auto diff final Sodium 141 Potassium 3.2 L Chloride 100 Carbon Dioxide 35.9 H Anion Gap 5 BUN 18 Creatinine 1.64 H Estimated GFR 31 L Random Glucose 124 H Calcium 9.5 Assessment and Plan - Assessment (1) Pancreatitis Code(s): K85.90 - Acute pancreatitis without necrosis or infection, unspecified Status: Acute (2) Pseudocyst of pancreas Code(s): K86.3 - Pseudocyst of pancreas Status: Acute - Plan 72-year-old female with a history of recent admission for COPD, pancreatitis, hypertension, chronic iron deficiency anemia, chronic diarrhea, history of colorectal cancer status post right hemicolectomy with terminal ileectomy, hypothyroidism, and GI bleed who was transferred from [facility] for treatment of pancreatitis with pseudocyst. Pancreatitis with pseudocyst -CT of abdomen and pelvis without IV contrast showed retroperitoneal complex fluid collection measuring 13 x 16 x 17 cm favoring a large pancreatic pseu- cyst. -n.p.o. -IV fluids with normal saline at 100 cc/h -Morphine 2 mg IV every 3 hours as needed for pain -Patient without fever or elevated white blood count, no antibiotics were ever initiated -IV Zofran for nausea -appreciate GI input, d/w TORCH BRAZER, going for EUS today -s/p EUS by GI. Consult IR to drain the pseudocyst. Plan for IR to drain pseudocyst, however IR and general surgery to not perform surgery. Plan to transfer to tertiary hospital. Discussed with the case management. Possible transfer to [facility] COPD -continuous oxygen via 2l [place] -PRN duonebs Hypertension -continue home meds when verified, Norvasc and Losartan. Hypothyroidism -continue home meds DVT prophylaxis-SCDs Labs in am Code Status: Full code Discussed Condition With: patient, nurse Discharge Planning: Not ready yet, poss home with [facility] Plan for IR to drain pseudocyst, however IR and general surgery to not perform surgery. Plan to transfer to tertiary hospital. Discussed with the case management. Possible transfer to [facility]. Discussed with Dr. mi, hospitalist at [facility], who accepted the patient, however at this time there is no beds availability at the facility. Possible patient can be taken on Friday at [facility].
[2018-07-10] MEDS: Morphine Sulfate Inj 2 MG/ML Vial IV.PUSH PRN ×3 (03:23→21:07)
[2018-07-10] MEDS: Levothyroxine 50 MCG Tablet PO SCH (06:28)
[2018-07-10] MEDS: Sod Chloride 0.9% Inj 1,000 ML IV.CONT SCH ×3 (06:47→17:45)
[2018-07-10 08:55] LABS: Baso % (Auto) 0.7 % (0.0-2.0); Eos % (Auto) 0.7 % (0.0-4.0); Hematocrit 29.9 % (35.0-46.0); Hemoglobin 9.6 gm/dL (11.6-15.3); Lymph # (Auto) 0.4 th/mm3 (1.0-4.8); Lymph % (Auto) 10.6 % (9.0-44.0); Mean Corpuscular Hemoglobin 27.8 pg (27.0-34.0); Mean Platelet Volume 7.9 fL (7.0-11.0); Mono # (Auto) 0.4 th/mm3 (0.0-0.9); Mono % (Auto) 9.3 % (0.0-8.0); Neut # (Auto) 3.3 th/mm3 (1.8-7.7); Neut % (Auto) 78.7 % (16.0-70.0); Platelet Count 277 th/mm3 (150-450); Red Blood Count 3.44 mil/mm3 (4.00-5.30); Red Cell Distribution Width 15.3 % (11.6-17.2); White Blood Count 4.1 th/mm3 (4.0-11.0)
[2018-07-10] MEDS: Famotidine PF Inj 20 MG/2 ML Vial IV.PUSH SCH ×2 (09:10→21:06)
[2018-07-10] MEDS: Torsemide 20 MG Tablet PO SCH (09:11)
[2018-07-10] MEDS: Spironolactone 25 MG Tablet PO SCH (09:11)
[2018-07-10 09:24] LABS: Potassium 3.2 meq/L (3.5-5.1)
[2018-07-10] MEDS ORDERED: Potassium Chlor 20 mEq Premix 20 MEQ/100 ML PIGGYBACK IV.SIG ONE (15:31)
[2018-07-10] MEDS ORDERED: Sod Phosphate/Sod Biphosphate (Adult) Enema 133 ML Bottle RECTAL ONE (15:31)
--- NOTE | 2018-07-10 15:54 | P.PNIM ---
Subjective Interval history: patient reports feeling sob due to abd distention. Denies any chest pain. Denies any abdominal pain, only distention. Denies nausea or vomiting. Patient says she feel constipated, has not had a bowel movement since Friday. Physical Exam Vital signs: Vital Signs 07/09/18 16:00 07/09/18 20:00 07/09/18 20:05 Temperature 98.1 F 97.7 F Pulse Rate 64 63 71 Respiratory Rate 18 20 Blood Pressure 145/91 H 138/73 Pulse Oximetry 98 97 07/09/18 23:55 07/10/18 00:00 07/10/18 04:00 Temperature 97.9 F 98.1 F Pulse Rate 65 71 60 Respiratory Rate 18 16 Blood Pressure 139/75 151/75 H Pulse Oximetry 98 100 07/10/18 08:00 07/10/18 08:36 07/10/18 12:00 Temperature 97.8 F 97.7 F Pulse Rate 69 63 Respiratory Rate 18 18 Blood Pressure 144/76 H 153/81 H Pulse Oximetry 100 100 99 Intake & Output 07/09/18 07/10/18 07/10/18 18:59 06:59 18:59 Intake Total 1000 / 1000 1987 Output Total 1350 / 1350 Balance 1000 / 1000 638 / 638 Weight 110.8 kg Intake: IV 1000 / 1000 1748 / 1748 NS Inj 1,000 ML @ 100 mls/hr IV 1000 / 1000 1748 / 1748 .CONT .Q10H [facility] Rx#:[id number] Oral 240 / 240 Output: Urine 1350 / 1350 Other: # Bowel Movements 0 Narrative: GENERAL: Patient lying in bed. Appears comfortable. SKIN: Warm and dry. HEAD: Normocephalic. EYES: No scleral icterus. No injection or drainage. NECK: Supple, trachea midline. No JVD. CARDIOVASCULAR: Regular rate and rhythm without murmurs, gallops, or rubs. RESPIRATORY: Breath sounds equal bilaterally. No accessory muscle use. GASTROINTESTINAL: Abdomen distended, hypoactive bowel sounds. MUSCULOSKELETAL: No cyanosis, or edema. BACK: Nontender without obvious deformity. No CVA tenderness. Results - Labs CBC & Chem 7: 07/10/18 07:31 07/10/18 07:31 Laboratory Results - last 24 hr 11/16/18 11/16/18 07:31 07:31 WBC 4.1 RBC 3.44 L Hgb 9.6 L Hct 29.9 L MCV 87.0 MCH 27.8 MCHC 32.0 RDW 15.3 Plt Count 277 MPV 7.9 Neut % (Auto) 78.7 H Lymph % (Auto) 10.6 [place] % (Auto) 9.3 H Eos % (Auto) 0.7 Baso % (Auto) 0.7 Neut # (Auto) 3.3 Lymph # (Auto) 0.4 L [place] # (Auto) 0.4 Eos # (Auto) 0.0 Baso # (Auto) 0.0 WBC Differential . Differential Comment Auto diff final Sodium 142 Potassium 3.2 L Chloride 99 Carbon Dioxide 37.0 H Anion Gap 6 BUN 15 Creatinine 1.77 H Estimated GFR 28 L Random Glucose 92 Calcium 9.0 Assessment and Plan - Assessment (1) Pancreatitis Code(s): K85.90 - Acute pancreatitis without necrosis or infection, unspecified Status: Acute (2) Pseudocyst of pancreas Code(s): K86.3 - Pseudocyst of pancreas Status: Acute - Plan 72-year-old female with a history of recent admission for COPD, pancreatitis, hypertension, chronic iron deficiency anemia, chronic diarrhea, history of colorectal cancer status post right hemicolectomy with terminal ileectomy, hypothyroidism, and GI bleed who was transferred from [facility] for treatment of pancreatitis with pseudocyst. //Pancreatitis with pseudocyst -CT of abdomen and pelvis without IV contrast showed retroperitoneal complex fluid collection measuring 13 x 16 x 17 cm favoring a large pancreatic pseu- cyst. -n.p.o. -IV fluids with normal saline at 100 cc/h -Morphine 2 mg IV every 3 hours as needed for pain -Patient without fever or elevated white blood count, no antibiotics were ever initiated -IV Zofran for nausea -appreciate GI input, d/w BRUSH MACHINE SETTER, going for EUS today -s/p EUS by GI. Consult IR to drain the pseudocyst. Plan for IR to drain pseudocyst, however IR and general surgery to not perform surgery. Plan to transfer to tertiary hospital. Discussed with the case management. Possible transfer to [facility] = 07/10. Picked up patient's case today. GI has signed off. LFTs were increasing as of yesterday. Will recheck tomorrow. Possible constipation. Check AP abdomen for stool burden. Poor renal function, patient is not on IV fluids - will start. Possible transfer to tertiary care center. //Impaired renal function. Uncertain baseline. Creatinine 1.7. Hold CYNTHIA inhibitor and start IV fluids. //Hypokalemia. 3.2. Replace and monitor. Will check magnesium tomorrow //COPD and chronic -continuous oxygen via 2l [place] -PRN duonebs //Hypertension -continue home meds when verified, Norvasc and Losartan. //Hypothyroidism -continue home meds //DVT prophylaxis-SCDs Labs in am Code Status: Full code Discussed Condition With: patient, nurse Discussed Condition With: Not ready yet, poss home with [facility] Plan for IR to drain pseudocyst, however IR and general surgery to not perform surgery. Plan to transfer to tertiary hospital. Discussed with the case management. Possible transfer to [facility]. Discussed with Dr. mi, hospitalist at [facility], who accepted the patient, however at this time there is no beds availability at the facility. Possible patient can be taken on Friday at [facility]. Discharge Planning: Possible transfer to tertiary care center this weekend.
[2018-07-10 17:12] LABS: Albumin 2.5 g/dL (3.4-5.0)
[2018-07-10 17:13] LABS: Total Protein 6.6 g/dL (6.4-8.2)
--- NOTE | 2018-07-10 20:54 | XR ---
EXAM DATE: 07/10/2018 8:50 PM EST AGE/SEX: 72 years / Female INDICATIONS: Distention. CLINICAL DATA: This is the patient's initial encounter. Patient reports that signs and symptoms have been present for 1 month and indicates a pain score of 10/10. MEDICAL/SURGICAL HISTORY: . Liver cyst. Pancreatitis. None. COMPARISON: No prior exams available for comparison. FINDINGS: There is a solitary loop of small bowel in the left hypogastric region which is distended and measur es 4.6 cm in width. Gas is seen in the transverse and left colon. There is a paucity of gas in the ri ght abdomen which may be due to a known large complex pancreatic pseudocyst. Moderate degenerative ch anges in the lower lumbar spine and ossific bridging between the iliac crest and L5 bilaterally. CONCLUSION: There is one distended loop of small bowel in the left abdomen measuring 4.6 cm. Electronically signed by: Anderson Lind MD 07/10/2018 8:53 PM EST
[2018-07-11] MEDS: Sod Chloride 0.9% Inj 1,000 ML IV.CONT SCH ×5 (00:03→13:12)
[2018-07-11] MEDS: Morphine Sulfate Inj 2 MG/ML Vial IV.PUSH PRN ×3 (00:35→21:49)
[2018-07-11] MEDS: Levothyroxine 50 MCG Tablet PO SCH (05:42)
[2018-07-11 07:23] LABS: Baso % (Auto) 0.8 % (0.0-2.0); Eos % (Auto) 0.7 % (0.0-4.0); Hematocrit 29.9 % (35.0-46.0); Hemoglobin 9.6 gm/dL (11.6-15.3); Lymph # (Auto) 0.5 th/mm3 (1.0-4.8); Mean Corpuscular HGB Conc 32.2 % (32.0-36.0); Mean Corpuscular Hemoglobin 27.8 pg (27.0-34.0); Mean Corpuscular Volume 86.6 fL (80.0-100.0); Mono # (Auto) 0.3 th/mm3 (0.0-0.9); Mono % (Auto) 8.5 % (0.0-8.0); Neut # (Auto) 3.1 th/mm3 (1.8-7.7); Platelet Count 269 th/mm3 (150-450); Red Blood Count 3.46 mil/mm3 (4.00-5.30); Red Cell Distribution Width 15.6 % (11.6-17.2)
[2018-07-11 07:46] LABS: Phosphorus 2.7 mg/dL (2.5-4.9)
[2018-07-11 07:59] LABS: Total Protein 6.7 g/dL (6.4-8.2)
[2018-07-11 08:06] LABS: Albumin 2.5 g/dL (3.4-5.0); Calcium 9.2 mg/dL (8.5-10.1); Carbon Dioxide 35.6 meq/L (21.0-32.0); Magnesium 1.6 mg/dL (1.5-2.5)
[2018-07-11 08:17] LABS: Potassium 3.5 meq/L (3.5-5.1)
[2018-07-11] MEDS: Torsemide 20 MG Tablet PO SCH (08:39)
[2018-07-11] MEDS: Spironolactone 25 MG Tablet PO SCH (08:39)
[2018-07-11] MEDS: Famotidine PF Inj 20 MG/2 ML Vial IV.PUSH SCH ×2 (08:40→21:50)
[2018-07-11] MEDS ORDERED: Magnesium Citrate Liq 300 ML Bottle PO ONE (10:51)
[2018-07-11] MEDS ORDERED: Mag Sulf 1 gm/100 ml Premix 100 ML IV.SIG ONE (10:55)
--- NOTE | 2018-07-11 10:58 | P.PNIM ---
Subjective Interval history: Patient denies any nausea or vomiting. Reports abdominal distention continues. Reports continued back pain. Denies any chest pain shortness of breath. Physical Exam Vital signs: Vital Signs 07/10/18 12:00 07/10/18 16:00 07/10/18 17:24 Temperature 97.7 F 97.6 F Pulse Rate 63 99 H Respiratory Rate 18 18 Blood Pressure 153/81 H 159/89 H Pulse Oximetry 99 96 99 07/10/18 20:00 07/11/18 00:00 07/11/18 04:00 Temperature 98.9 F 98.8 F 98.0 F Pulse Rate 64 60 63 Respiratory Rate 16 18 18 Blood Pressure 148/73 H 150/75 H 148/65 H Pulse Oximetry 98 96 97 07/11/18 08:00 Temperature 97.9 F Pulse Rate 58 L Respiratory Rate 18 Blood Pressure 162/76 H Pulse Oximetry 98 Intake & Output 07/10/18 07/11/18 07/11/18 18:59 06:59 18:59 Intake Total 832 / 832 1000 / 1000 1000 / 1000 Balance 832 / 832 1000 / 1000 1000 / 1000 Weight 110.8 kg 109.7 kg Intake: IV 352 / 352 1000 / 1000 1000 / 1000 NS Inj 1,000 ML @ 125 mls/hr IV 252 / 252 1000 / 1000 1000 / 1000 .CONT .Q8H [facility] Rx#:[id number] KCl 20 mEq Premix Inj 20 meq In 100 / 100 100 ml @ 50 mls/hr IV.SIG ONCE ONE Rx#:[id number] Oral 480 / 480 0 / 0 Other: # Voids 6 0 # Bowel Movements 0 Narrative: GENERAL: Patient lying in bed. Appears generally uncomfortable. SKIN: Warm and dry. HEAD: Normocephalic. EYES: No scleral icterus. No injection or drainage. NECK: Supple, trachea midline. No JVD. CARDIOVASCULAR: Regular rate and rhythm without murmurs, gallops, or rubs. RESPIRATORY: Breath sounds equal bilaterally. No accessory muscle use. GASTROINTESTINAL: Abdomen distended, positive bowel sounds. Nontender. No rebound or guarding. MUSCULOSKELETAL: No cyanosis, 1+ bilateral lower extremity edema. BACK: Nontender without obvious deformity. No CVA tenderness. Results - Labs CBC & Chem 7: 07/11/18 06:12 11/17/18 06:12 Laboratory Results - last 24 hr 07/10/18 07/11/18 07/11/18 07:31 06:12 06:12 WBC 4.0 RBC 3.46 L Hgb 9.6 L Hct 29.9 L MCV 86.6 MCH 27.8 MCHC 32.2 RDW 15.6 Plt Count 269 MPV 8.0 Neut % (Auto) 77.0 H Lymph % (Auto) 13.0 [place] % (Auto) 8.5 H Eos % (Auto) 0.7 Baso % (Auto) 0.8 Neut # (Auto) 3.1 Lymph # (Auto) 0.5 L [place] # (Auto) 0.3 Eos # (Auto) 0.0 Baso # (Auto) 0.0 WBC Differential . Differential Comment Auto diff final Sodium 142 Potassium 3.5 Chloride 99 Carbon Dioxide 35.6 H Anion Gap 7 BUN 14 Creatinine 1.79 H Estimated GFR 28 L Random Glucose 98 Calcium 9.2 Phosphorus 2.7 Magnesium 1.6 Total Bilirubin 3.9 H 4.9 H Direct Bilirubin 3.3 H 2.9 H Indirect Bilirubin 0.6 2.0 H AST 475 H 410 H ALT 539 H 470 H Alkaline Phosphatase 934 H 928 H Total Protein 6.6 6.7 Albumin 2.5 L 2.5 L - Imaging Impressions Abdomen X-Ray 07/10/18 00:00 CONCLUSION: There is one distended loop of small bowel in the left abdomen measuring 4.6 cm. Assessment and Plan - Assessment (1) Pancreatitis Code(s): K85.90 - Acute pancreatitis without necrosis or infection, unspecified Status: Acute (2) Pseudocyst of pancreas Code(s): K86.3 - Pseudocyst of pancreas Status: Acute - Plan 72-year-old female with a history of recent admission for COPD, pancreatitis, hypertension, chronic iron deficiency anemia, chronic diarrhea, history of colorectal cancer status post right hemicolectomy with terminal ileectomy, hypothyroidism, and GI bleed who was transferred from [facility] for treatment of pancreatitis with pseudocyst. //Pancreatitis with pseudocyst -CT of abdomen and pelvis without IV contrast showed retroperitoneal complex fluid collection measuring 13 x 16 x 17 cm favoring a large pancreatic pseu- cyst. -n.p.o. -IV fluids with normal saline at 100 cc/h -Morphine 2 mg IV every 3 hours as needed for pain -Patient without fever or elevated white blood count, no antibiotics were ever initiated -IV Zofran for nausea -appreciate GI input, d/w TRANSMITTER TESTER, going for EUS today -s/p EUS by GI. Consult IR to drain the pseudocyst. Plan for IR to drain pseudocyst, however IR and general surgery to not perform surgery. Plan to transfer to tertiary hospital. Discussed with the case management. Possible transfer to [facility] = 07/10. Picked up patient's case today. GI has signed off. LFTs were increasing as of yesterday. Will recheck tomorrow. Possible constipation. Check AP abdomen for stool burden. Poor renal function, patient is not on IV fluids - will start. Possible transfer to tertiary [facility]. = 07/11. LFTs continue elevated but stable. AP abdomen with distended bowel loop, however no indication of ileus or obstruction. Will treat constipation with magnesium citrate as requested by patient. Patient is tolerating p.o. intake with liquid diet, will slight bilateral lower extremity edema will decrease IV fluids. Plan for transfer to tertiary [facility] in the coming days. //Impaired renal function. Uncertain baseline. Creatinine 1.7. Hold CYNTHIA inhibitor and continue IV fluids. //Hypokalemia. -Resolved after replacement. Magnesium 1.6 will replace. Monitor. //COPD and chronic -continuous oxygen via 2l [place] -PRN duonebs //Hypertension -Blood pressure in the 140s-160s. As needed Vasotec. Continue to hold home blood pressure medications at this time //Hypothyroidism -continue home meds //DVT prophylaxis-SCDs Labs in am Code Status: Full code Discussed Condition With: patient, nurse Discharge Planning: Possible transfer to tertiary [facility] this weekend.
[2018-07-12] MEDS: Levothyroxine 50 MCG Tablet PO SCH (05:27)
[2018-07-12] MEDS: Morphine Sulfate Inj 2 MG/ML Vial IV.PUSH PRN ×3 (05:28→20:45)
[2018-07-12] MEDS: Sod Chloride 0.9% Inj 1,000 ML IV.CONT SCH ×2 (05:30→15:17)
[2018-07-12] MEDS: Spironolactone 25 MG Tablet PO SCH (08:30)
[2018-07-12] MEDS: Torsemide 20 MG Tablet PO SCH (08:30)
[2018-07-12] MEDS: Famotidine PF Inj 20 MG/2 ML Vial IV.PUSH SCH ×2 (08:30→20:45)
[2018-07-12 08:47] LABS: Baso % (Auto) 0.7 % (0.0-2.0); Eos % (Auto) 0.9 % (0.0-4.0); Hematocrit 30.4 % (35.0-46.0); Hemoglobin 9.9 gm/dL (11.6-15.3); Lymph # (Auto) 0.5 th/mm3 (1.0-4.8); Lymph % (Auto) 12.4 % (9.0-44.0); Mean Corpuscular HGB Conc 32.5 % (32.0-36.0); Mean Corpuscular Hemoglobin 27.7 pg (27.0-34.0); Mean Corpuscular Volume 85.4 fL (80.0-100.0); Mean Platelet Volume 7.8 fL (7.0-11.0); Mono # (Auto) 0.4 th/mm3 (0.0-0.9); Mono % (Auto) 8.9 % (0.0-8.0); Neut # (Auto) 3.3 th/mm3 (1.8-7.7); Neut % (Auto) 77.1 % (16.0-70.0); Platelet Count 278 th/mm3 (150-450); Red Blood Count 3.57 mil/mm3 (4.00-5.30); Red Cell Distribution Width 15.3 % (11.6-17.2); White Blood Count 4.3 th/mm3 (4.0-11.0)
[2018-07-12 09:02] LABS: Calcium 9.5 mg/dL (8.5-10.1); Carbon Dioxide 38.6 meq/L (21.0-32.0); Potassium 3.1 meq/L (3.5-5.1)
[2018-07-12] MEDS: Potassium Chlor 20 mEq Premix 20 MEQ/100 ML PIGGYBACK IV.SIG SCH ×2 (09:48→12:10)
--- NOTE | 2018-07-12 10:03 | P.DS ---
Date of admission: 07/07/18 15:23 Primary care physician: UNKNOWN Brief History from admission: Ms. Kaye is a 72-year-old female with a history of recent admission for COPD , pancreatitis, hypertension, chronic iron deficiency anemia, chronic diarrhea, history of colorectal cancer status post right hemicolectomy with terminal ileectomy, hypothyroidism, and GI bleed who was transferred from [facility] for treatment of pancreatitis with pseudocyst. The patient was admitted on 07/05/2018 after presenting to the emergency room at [facility] complaining of abdominal pain, nausea, and vomiting. She had been discharged on June 24, 2018 following inpatient treatment for for pancreatitis - duration of hospital stay was 10 days according to the patient. CT of the abdomen and pelvis without IV contrast performed 07/05/2018 showed a retroperitoneal complex fluid collection measuring 13 x 16 x 17 cm favoring a large pancreatic pseudocyst. There was question of disruption/ necrosis of the pancreatic neck possibly bridging pancreatitis with a potential disruption of pancreatic duct. Significant distention of the proximal common bile duct was seen and was thought to be likely related to its encasement by the pseudocyst. Lipase was "greater than 600", AST was 136 and ALT was 88 and alkaline phosphatase was 332. Her symptoms included abdominal pain, nausea, and vomiting starting 07/04/2018. Patient seen in the CDU shortly after her arrival. She reports severe right quadrant abdominal pain that was previously relieved with IV morphine at [place]. She was just given IV morphine here and it has not taken effect yet. She reports nausea and thirst. She reports only one episode of vomiting that occurred while she was in the [place] ER. Denies any fever, chills, chest pain. She reports increased SOB and was discharged on 06/24/18 with continuous home oxygen at 2 liters via NC. She previously did not require home oxygen. DS: Diagnosis - Discharge Diagnosis (1) Pancreatitis Status: Acute (2) Pseudocyst of pancreas Status: Acute DS: Summary Hospital Course: Gastroenterology performed EUS revisualization of fluid collection, however unable to drain pseudocyst. IR, general surgery also consulted and unable to drain. LFTs continued increasing, however patient's abdominal discomfort remained stable. Patient was transferred to tertiary care center. For problem a summary from most recent progress note, please see below. 72-year-old female with a history of recent admission for COPD, pancreatitis, hypertension, chronic iron deficiency anemia, chronic diarrhea, history of colorectal cancer status post right hemicolectomy with terminal ileectomy, hypothyroidism, and GI bleed who was transferred from [facility] for treatment of pancreatitis with pseudocyst. //Pancreatitis with pseudocyst -CT of abdomen and pelvis without IV contrast showed retroperitoneal complex fluid collection measuring 13 x 16 x 17 cm favoring a large pancreatic pseu- cyst encapsulating duodenum. -Morphine 2 mg IV every 3 hours as needed for pain -Patient without fever or elevated white blood count, no antibiotics were ever initiated -IV Zofran for nausea -appreciate GI input, d/w [employer], going for EUS today -s/p EUS by GI. Consult IR to drain the pseudocyst. Plan for IR to drain pseudocyst, however IR and general surgery to not perform surgery. Plan to transfer to tertiary hospital. Discussed with the case management. Possible transfer to [facility] = 07/10. Picked up patient's case today. GI has signed off. LFTs were increasing as of yesterday. Will recheck tomorrow. Possible constipation. Check AP abdomen for stool burden. Poor renal function, patient is not on IV fluids - will start. Possible transfer to tertiary care center. = 07/11. LFTs continue elevated but stable. AP abdomen with distended bowel loop, however no indication of ileus or obstruction. Will treat constipation with magnesium citrate as requested by patient. Patient is tolerating p.o. intake with liquid diet, will slight bilateral lower extremity edema will decrease IV fluids. Plan for transfer to tertiary care center in the coming days. = 07/12. LFTs pending today. Relatively stable as of yesterday with AST 410, ALT 470, alk phos 928. Continue to monitor. GI has signed off. Plan transfer to tertiary care center. //Impaired renal function. Uncertain baseline. Creatinine 1.7. Hold CYNTHIA inhibitor and continue IV fluids. //Hypokalemia. -07/12. 3.1. Replace and monitor. Magnesium pending. //COPD and chronic -continuous oxygen via 2l NC -PRN duonebs //Hypertension -Blood pressure in the 140s-160s. As needed Vasotec. Continue to hold home blood pressure medications at this time //Hypothyroidism -continue home meds //DVT prophylaxis-SCDs Labs in am Code Status: Full code Discussed Condition With: Patient, nurse Discharge Planning: Possible transfer to tertiary care center this weekend. - Time Spent with Patient Total time spent providing and/or coordinating discharge services: Greater than 30 minutes - Quality: VTE Deep Vein Thrombosis/Pulmonary Embolism Present on Admission: No Exam Vital signs: Vital Signs 07/11/18 11:15 07/11/18 12:00 07/11/18 16:00 Temperature 98.1 F 98.0 F Pulse Rate 68 58 L Respiratory Rate 18 18 Blood Pressure 175/78 H 151/68 H Pulse Oximetry 97 97 97 07/11/18 19:59 07/11/18 20:00 07/11/18 20:01 Temperature 97.9 F Pulse Rate 52 L 75 Respiratory Rate 16 Blood Pressure 166/84 H Pulse Oximetry 92 L 99 07/11/18 23:25 07/11/18 23:51 07/12/18 03:52 Temperature 98.0 F Pulse Rate 94 H 61 63 Respiratory Rate 18 Blood Pressure 145/70 H Pulse Oximetry 99 07/12/18 04:00 07/12/18 08:00 Temperature 97.8 F 97.7 F Pulse Rate 62 66 Respiratory Rate 18 18 Blood Pressure 177/82 H 169/85 H Pulse Oximetry 96 95 Intake & Output 07/11/18 07/12/18 07/12/18 18:59 06:59 18:59 Intake Total 2080 / 2080 1108 / 1108 52 / 52 Output Total 550 / 550 Balance 2079 / 0 558 / 558 52 / 52 Weight 110.6 kg Intake: IV 1600 / 1600 748 / 748 52 / 52 NS Inj 1,000 ML @ 60 mls/hr IV. 1500 / 1500 748 / 748 52 / 52 CONT .[id number] [facility] Rx#:[id number] Magnesium Sulfate 1 gm/D5W 100 100 / 100 ml Premix 100 ML @ 100 mls/hr IV.SIG ONCE ONE Rx#:[id number] Oral 480 / 480 360 / 360 Output: Urine 550 / 550 Other: # Voids 5 Results Procedures completed during hospitalization: Endoscopic ultrasound without drainage. Please see report. Labs on day of discharge: Labs from last 24 hours 07/12/18 07/12/18 08:05 08:05 WBC 4.3 RBC 3.57 L Hgb 9.9 L Hct 30.4 L MCV 85.4 MCH 27.7 MCHC 32.5 RDW 15.3 Plt Count 278 MPV 7.8 Neut % (Auto) 77.1 H Lymph % (Auto) 12.4 [place] % (Auto) 8.9 H Eos % (Auto) 0.9 Baso % (Auto) 0.7 Neut # (Auto) 3.3 Lymph # (Auto) 0.5 L [place] # (Auto) 0.4 Eos # (Auto) 0.0 Baso # (Auto) 0.0 WBC Differential . Differential Comment Auto diff final Sodium 141 Potassium 3.1 L Chloride 96 L Carbon Dioxide 38.6 H Anion Gap 6 BUN 15 Creatinine 1.73 H Estimated GFR 29 L Random Glucose 97 Calcium 9.5 - Impressions ITS Impressions Abdomen X-Ray 07/10/18 00:00 CONCLUSION: There is one distended loop of small bowel in the left abdomen measuring 4.6 cm. Discharge Plan - Discharge Disposition Patient Disposition: 72 Transfer To Other Facility - Discharge Condition Condition: Fair - Discharge Order Discharge Orders: Discharge Order (Routine); Ordered 07/12/18 Ordered By: Sandra Damian - Physicians Team Primary Care Provider: UNKNOWN, Attending Provider: Jaswant Childress Other Providers: Shadi Gaffney MD ; Agustin Roach MD ; Girma,MD Juan - Rxs /Orders / Referrals /Forms Prescriptions: New acetaminophen 325 mg Tablet 650 mg PO Q4H PRN (Reason: Temp > 100.4) RF: 0 amlodipine [Norvasc] 5 mg Tablet 5 mg PO DAILY RF: 0 bisacodyl [Bisac-Evac] 10 mg Suppository 10 mg [place] DAILY PRN (Reason: Severe Consitipation) RF: 0 famotidine (PF) 20 mg/2 mL Solution 10 mg IV.PUSH Q12HR RF: 0 ipratropium-albuterol 0.5 mg-3 mg(2.5 mg base)/3 mL Solution For Nebulization 1 amp NEB Q2HR NEB PRN (Reason: Shortness Of Breath/Wheezing) RF: 0 lactulose 20 gram/30 mL Solution 30 ml PO DAILY PRN (Reason: Severe Consitipation) RF: 0 morphine 2 mg/mL Syringe 2 mg IV.PUSH Q3H PRN (Reason: pain > 4) RF: 0 ondansetron HCl (PF) 4 mg/2 mL Solution 4 mg IV.PUSH Q6H PRN (Reason: Nausea Or Vomiting) RF: 0 pantoprazole 40 mg Tablet,Delayed Release (Dr/Ec) 40 mg PO DAILY RF: 0 sennosides [Senna Lax] 8.6 mg Tablet 17.2 mg PO Q12H PRN (Reason: Moderate Constipation) RF: 0 sodium chloride 0.9 % Parenteral Solution 60 ml/hr IV.CONT .[id number] RF: 0 spironolactone [Aldactone] 25 mg Tablet 25 mg PO DAILY RF: 0 torsemide 20 mg Tablet 20 mg PO DAILY RF: 0 Continue levothyroxine 50 mcg Tablet 50 mcg PO DAILY losartan 100 mg Tablet 100 mg PO DAILY Discontinued amlodipine 5 mg Tablet 5 mg PO DAILY pantoprazole [Protonix] 40 mg Tablet,Delayed Release (Dr/Ec) 40 mg PO DAILY spironolactone [Aldactone] 25 mg Tablet 25 mg PO DAILY terazosin 5 mg Capsule PO HS torsemide 20 mg Tablet 20 mg PO DAILY Referrals: UNKNOWN, [Primary Care Provider] - See Instructions - Discharge Instructions Patient Printed Instructions: Pancreatitis (DC) - Post Discharge Care Plan Care Plan Goals: Your Health Problems: Goals to Promote Your Health: * To prevent worsening of your condition * To maintain your health at the optimal level Directions to Meet Your Goals: * Take your medications as prescribed * Follow your dietary instruction * Follow activity as directed * Keep your appointments as scheduled * Take your immunizations and boosters as scheduled * If your symptoms worsen call your PCP * If no PCP go to Urgent Care or Emergency Room Smoking is dangerous to your health. Avoid second hand smoke. You may reach the 24-hour crisis hotline for domestic abuse at .
--- NOTE | 2018-07-12 10:03 | P.PNIM ---
Subjective Interval history: Patient says she is feeling generally a little better today. Reports abdominal discomfort slightly improved. Back pain improved as well. Denies any chest pain or shortness of breath. Denies nausea or vomiting. She drank half of a bottle of magnesium citrate yesterday, no bowel movement yet today. Physical Exam Vital signs: Vital Signs 07/11/18 11:15 07/11/18 12:00 07/11/18 16:00 Temperature 98.1 F 98.0 F Pulse Rate 68 58 L Respiratory Rate 18 18 Blood Pressure 175/78 H 151/68 H Pulse Oximetry 97 97 97 07/11/18 19:59 07/11/18 20:00 07/11/18 20:01 Temperature 97.9 F Pulse Rate 52 L 75 Respiratory Rate 16 Blood Pressure 166/84 H Pulse Oximetry 92 L 99 07/11/18 23:25 07/11/18 23:51 07/12/18 03:52 Temperature 98.0 F Pulse Rate 94 H 61 63 Respiratory Rate 18 Blood Pressure 145/70 H Pulse Oximetry 99 07/12/18 04:00 07/12/18 08:00 Temperature 97.8 F 97.7 F Pulse Rate 62 66 Respiratory Rate 18 18 Blood Pressure 177/82 H 169/85 H Pulse Oximetry 96 95 Intake & Output 07/11/18 07/12/18 07/12/18 18:59 06:59 18:59 Intake Total 2079 / 2080 1108 / 1108 52 / 52 Output Total 550 / 550 Balance 2079 / 0 558 / 558 52 / 52 Weight 110.6 kg Intake: IV 1600 / 1600 748 / 748 52 / 52 NS Inj 1,000 ML @ 60 mls/hr IV. 1500 / 1500 748 / 748 52 / 52 CONT .[id number] [facility] Rx#:[id number] Magnesium Sulfate 1 gm/D5W 100 100 / 100 ml Premix 100 ML @ 100 mls/hr IV.SIG ONCE ONE Rx#:[id number] Oral 480 / 480 360 / 360 Output: Urine 550 / 550 Other: # Voids 5 Narrative: GENERAL: Patient lying in bed. Appears generally uncomfortable. SKIN: Warm and dry. HEAD: Normocephalic. EYES: No scleral icterus. No injection or drainage. NECK: Supple, trachea midline. No JVD. CARDIOVASCULAR: Regular rate and rhythm without murmurs, gallops, or rubs. RESPIRATORY: Breath sounds equal bilaterally. No accessory muscle use. GASTROINTESTINAL: Abdomen distended, positive bowel sounds. Nontender. No rebound or guarding. MUSCULOSKELETAL: No cyanosis, trace bilateral lower extremity edema. BACK: Nontender without obvious deformity. No CVA tenderness. Results - Labs CBC & Chem 7: 07/12/18 08:05 07/12/18 08:05 Laboratory Results - last 24 hr 07/12/18 07/12/18 08:05 08:05 WBC 4.3 RBC 3.57 L Hgb 9.9 L Hct 30.4 L MCV 85.4 MCH 27.7 MCHC 32.5 RDW 15.3 Plt Count 278 MPV 7.8 Neut % (Auto) 77.1 H Lymph % (Auto) 12.4 [place] % (Auto) 8.9 H Eos % (Auto) 0.9 Baso % (Auto) 0.7 Neut # (Auto) 3.3 Lymph # (Auto) 0.5 L [place] # (Auto) 0.4 Eos # (Auto) 0.0 Baso # (Auto) 0.0 WBC Differential . Differential Comment Auto diff final Sodium 141 Potassium 3.1 L Chloride 96 L Carbon Dioxide 38.6 H Anion Gap 6 BUN 15 Creatinine 1.73 H Estimated GFR 29 L Random Glucose 97 Calcium 9.5 Assessment and Plan - Assessment (1) Pancreatitis Code(s): K85.90 - Acute pancreatitis without necrosis or infection, unspecified Status: Acute (2) Pseudocyst of pancreas Code(s): K86.3 - Pseudocyst of pancreas Status: Acute - Plan 72-year-old female with a history of recent admission for COPD, pancreatitis, hypertension, chronic iron deficiency anemia, chronic diarrhea, history of colorectal cancer status post right hemicolectomy with terminal ileectomy, hypothyroidism, and GI bleed who was transferred from [facility] for treatment of pancreatitis with pseudocyst. //Pancreatitis with pseudocyst -CT of abdomen and pelvis without IV contrast showed retroperitoneal complex fluid collection measuring 13 x 16 x 17 cm favoring a large pancreatic pseu- cyst encapsulating duodenum. -Morphine 2 mg IV every 3 hours as needed for pain -Patient without fever or elevated white blood count, no antibiotics were ever initiated -IV Zofran for nausea -appreciate GI input, d/w [employer], going for EUS today -s/p EUS by GI. Consult IR to drain the pseudocyst. Plan for IR to drain pseudocyst, however IR and general surgery to not perform surgery. Plan to transfer to tertiary hospital. Discussed with the case management. Possible transfer to [facility] = 07/10. Picked up patient's case today. GI has signed off. LFTs were increasing as of yesterday. Will recheck tomorrow. Possible constipation. Check AP abdomen for stool burden. Poor renal function, patient is not on IV fluids - will start. Possible transfer to tertiary [facility]. = 07/11. LFTs continue elevated but stable. AP abdomen with distended bowel loop, however no indication of ileus or obstruction. Will treat constipation with magnesium citrate as requested by patient. Patient is tolerating p.o. intake with liquid diet, will slight bilateral lower extremity edema will decrease IV fluids. Plan for transfer to tertiary [facility] in the coming days. = 07/12. LFTs pending today. Relatively stable as of yesterday with AST 410, ALT 470, alk phos 928. Continue to monitor. GI has signed off. Plan transfer to tertiary [facility]. //Impaired renal function. Uncertain baseline. Creatinine 1.7. Hold CYNTHIA inhibitor and continue IV fluids. //Hypokalemia. -07/12. 3.1. Replace and monitor. Magnesium pending. //COPD and chronic -continuous oxygen via 2l NC -PRN duonebs //Hypertension -Blood pressure in the 140s-160s. As needed Vasotec. Continue to hold home blood pressure medications at this time //Hypothyroidism -continue home meds //DVT prophylaxis-SCDs Labs in am Code Status: Full code Discussed Condition With: Patient, nurse Discharge Planning: Possible transfer to tertiary [facility] this weekend.
[2018-07-12 10:22] LABS: Albumin 2.5 g/dL (3.4-5.0); Magnesium 2.1 mg/dL (1.5-2.5)
[2018-07-12 10:35] LABS: Total Protein 6.7 g/dL (6.4-8.2)
[2018-07-12 19:26] VITALS: BP 164/81; PULSE 66; RESP 16; TEMP 99.1; O2SAT 100
== END 2018-07-12 23:46 | disposition short-term general hospital (02) | DRG 438 ==
LOC: NEPHCDU → PREINTOOBSV 22:35 → N04 07-07 17:05
PROVIDERS: ADMIT Internal Medicine; ATTEND Internal Medicine
CPT/HCPCS: 43259; 74000; 74018; 80048; 80053; 80069; 80076; 83690; 83735; 85025; 85027; 85610; 93005; J0330; J1100; J2270; J2405; J2704; J3475; J3480; J7030